=== PATIENT | female | born 1955 | race Caucasian/White ===

== ENCOUNTER 2017-08-15 14:43 | Inpatient (IN) | payer BC, MEDICARE ==
[2017-08-15 14:43] VITALS: BMI 26.2
[2017-08-15 17:01] LABS: SQUAMOUS EPITHIAL 1 /hpf (0-5); URINE AMORPHOUS SEDIMENT RARE /ul (<OCC); URINE BILIRUBIN NEGATIVE (NEGATIVE); URINE BLOOD 2+ (NEGATIVE); URINE CLARITY Hazy (Clear); URINE COLOR Yellow (YELLOW); URINE GLUCOSE (UA) NORMAL (Normal); URINE LEUKOCYTE ESTERASE NEG Leu/uL (Negative); URINE PROTEIN NEGATIVE (NEGATIVE)
[2017-08-15 17:09] LABS: BASO % 0.2 % (0.0-2.0); EOS % 0.1 % (0.0-4.0); HEMOGLOBIN 8.2 g/dL (11.0-16.0); LYMPH # 0.4 K/uL (1.0-4.3); MEAN CORPUSCULAR HEMOGLOBIN 29.8 pg (27.0-31.0); MONO # 0.1 K/uL (0.0-0.8); NEUT % 90.1 % (50.0-75.0); RBC 2.76 Mil/uL (3.80-5.20)
[2017-08-15 17:21] LABS: LYMPH % 7.8 % (20.0-40.0); MEAN CORPUSCULAR HGB CONC 32.9 g/dL (33.0-37.0); MEAN PLATELET VOLUME 11.7 fL (7.2-11.7); MONO % 1.8 % (0.0-10.0); NEUT # 5.1 K/uL (1.8-7.0); PLATELET COUNT 113 K/uL (130-400); RED CELL DISTRIBUTION WIDTH 16.9 % (11.5-14.5); WHITE BLOOD COUNT 5.7 K/uL (4.8-10.8)
[2017-08-15 17:22] LABS: MEAN CELL VOLUME 90.5 fL (81.0-99.0)
[2017-08-15 17:24] LABS: ALB/GLOB RATIO 1.2 (1.0-2.1); ALBUMIN 4.5 g/dL (3.5-5.0); ALT/SGPT 35 U/L (9-52); AST/SGOT 74 U/L (14-36); BLOOD UREA NITROGEN 35 mg/dL (7-17); GFR AFRICAN-AMERICAN > 60; GFR NON-AFRICAN AMERICAN 56
[2017-08-15 18:11] LABS: INR 2.9
--- NOTE | 2017-08-15 18:39 | C.PDOC ---
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 Patient states her hemoglobin level is usually around 9. Patient has been feeling generalized weakness and decrease in energy, so she was evaluated by her PMD and underwent bloodwork yesterday. Patient was called this morning and informed that her hemoglobin is around 7, and was advised to report to the ED for further evaluation. Patient denies fever, chills, nausea, vomiting. PMD: Dr. Brady Jameson Time Seen by Provider: 08/15/17 16:04 Chief Complaint (Nursing): Abnormal Labs History Per: Patient History/Exam Limitations: no limitations Current Symptoms Are (Timing): Still Present Additional History Per: Patient Past Medical History Reviewed: Historical Data, Nursing Documentation, Vital Signs Vital Signs: Last Vital Signs Temp 98.5 F 08/15/17 15:10 Pulse 97 H 08/15/17 15:10 Resp 20 08/15/17 15:10 BP 135/59 L 08/15/17 15:10 Pulse Ox 97 08/15/17 18:49 - Medical History PMH: Anemia (during ), Arthritis, Gastritis, HTN, Mitral Valve Prolapse ((1990)& arotic (2001) valve prolapse, mechanical heart valves placed) Denies: Chronic Kidney Disease Surgical History: No Surg Hx - [facility] D & C NEC (08/31/13) HYSTEROSCOPY (08/31/13) Family History: States: Unknown Family Hx - Social History Hx Alcohol Use: No Hx Substance Use: No - Immunization History Hx Tetanus Toxoid Vaccination: No Hx Influenza Vaccination: Yes Hx Pneumococcal Vaccination: Yes Review Of Systems Constitutional: Positive for: Other (low hemoglobin level ). Negative for: Fever, Chills Gastrointestinal: Negative for: Nausea, Vomiting Physical Exam - Physical Exam Appears: Non-toxic, No Acute Distress Skin: Warm, Dry, Pale Head: Atraumatic, Normacephalic Eye(s): bilateral: Normal Inspection Oral Mucosa: Moist Neck: Supple Chest: Symmetrical, No Deformity, No Tenderness Cardiovascular: Rhythm Regular, No Murmur Respiratory: Normal Breath Sounds, No Rales, No Rhonchi, No Wheezing Gastrointestinal/Abdominal: Soft, No Tenderness Extremity: Normal ROM, Capillary Refill (less than 2 seconds ) Neurological/Psych: Oriented x3, Normal Speech, Normal Cognition ED Course And Treatment - Laboratory Results Result Diagrams: 08/15/17 17:03 08/15/17 17:03 O2 Sat by Pulse Oximetry: 97 (on RA) Pulse Ox Interpretation: Normal Progress Note: Bloodwork and urinalysis ordered and reviewed. Patient has hemoglobin level of 8.2 L in the ED. Case discussed with Dr. Ornelas. Ordered 1 unit of extended blood transfusion. Patient will be observed on regular floor for symptomatic anemia. 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 - Scribe Statement The provider has reviewed the documentation as recorded by the Scribe (Matilde Fuller) All medical record entries made by the Scribe were at my direction and personally dictated by me. I have reviewed the chart and agree that the record accurately reflects my personal performance of the history, physical exam, medical decision making, and the department course for this patient. I have also personally directed, reviewed, and agree with the discharge instructions and disposition. Decision To Admit - Pt Status Changed To: Hospital Disposition Of: Observation - . Bed Request Type: Regular Admitting Physician: Luci Ornelas Patient Diagnosis: Symptomatic anemia
[2017-08-15 18:47] LABS: PROTHROMBIN TIME 31.9 SECONDS (9.7-12.2)
[2017-08-15 19:04] LABS: BANDS 5 % (0-2); HYPOCHROMIC SLIGHT; LYMPHOCYTE 3 % (20-40); MICROCYTOSIS SLIGHT; MONOCYTE 1 % (0-10); NEUTROPHIL 91 % (50-75); PLATELET ESTIMATE NORMAL (NORMAL); TOTAL CELLS COUNTED 100
[2017-08-15 19:05] LABS: LARGE PLATELETS PRESENT
--- NOTE | 2017-08-15 19:34 | CP.PCM.HP ---
History of Present Illness - History of Present Illness History of Present Illness: COMPREHENSIVE HISTORY & PHYSICAL EXAM HPI Patient is admitted from the emergency room with symptomatic anemia. 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 Currently patient is complaining of severe fatigue tiredness. Patient had a hemoglobin of 8.2 mg/dL. PAST HIST. Patient has history of aortic and mitral valve replacement. Hypertension PERSONAL HIST: Smoking. N Alcohol. N Allergy N Travel_- . FAMILY HIST : ROS : Constitutional: Negative for weight change, chills, night sweats Eyes: Negative for redness, swelling, itching, discharge, vision changes, blurry vision, double vision, glaucoma, cataracts, Ears: Negative for hearing loss, ringing, , tinnitus, vertigo Nose: Negative for rhinorrhea, stuffiness, sniffing, itching, postnasal drip, discoloration, nasal congestion and epistaxis. Throat: Negative for throat clearing, sore throat, hoarseness, difficulty swallowing and difficulty speaking. Respiratory: Negative for cough, , sputum production, chest tightness, wheezing, pleuritic chest pain ,daytime somnolence, chronic cough, hemoptysis, snoring at night, Cardiovascular: Negative for chest pain, palpitations, orthopnea, PND, Edema of legs, leg cramps, angina, claudication, , irregular heartbeat, Neurology: Negative for irritability, muscle weakness, numbness and tingling, seizures, tremors, migraines, slurred speech, syncope, memory loss, mood changes , recurrent headaches Gastrointestinal: Negative for difficulty swallowing, diarrhea, constipation, black stools, rectal bleeding, nausea, flatulence, reflux, poor appetite, changes in bowel habits, abdominal pain Genitourinary: Negative for frequent urination, hematuria, discharge, incontinence, urinary retention, frequent UTI, Psychiatric: Negative for depression, anxiety/panic, suicidal tendencies, Musculoskeletal: Negative for swollen joints, back pain, , neck pain, morning stiffness of joints, . Skin: Negative for rash, ulcers, itching, dry skin and pigmented lesions. P/E: Constitutional: Appears stated age and in no apparent distress. Head: Normocephalic. Ears: External ear canals patent without inflammation. Tympanic membranes intact with normal light reflex and landmark. Eyes: Pupils are central, bilaterally equal, symmetrical and reacts to light with normal movements and no icterus or pallor. Nose: External nares are patent. Mucosa is pink Mouth-Throat: Good general appearance and condition. No post-pharyngeal/oropharyngeal erythema and tonsillar hypertrophy. Good dental hygiene. Neck-Lymphatic: Neck is supple with normal ROM, no thyromegaly, lymph nodes or masses. JVD is normal with no carotid bruit. Lungs: Clear to percussion and auscultation with bilateral normal air entry. Cardiovascular: opening and closing metallic sounds at aortic and mitral area. There is a systolic ejection murmur in the aortic area grade 2 x 6. Mid diastolic murmur in mitral area. GI Exam: No hepatomegaly. Abdomen is soft and non-tender. No Organomegaly , masses or hernias are evident and bowel sounds are normal and active. Neurology: Higher function and all cranial nerves intact, with no gross motor or sensory deficit. Superficial and deep reflexes are normal with downwards planters. No cerebellar deficit with normal gait. Musculoskeletal: No tender spots with normal curvature of the spine with no swelling or restricted ROM of the small and large joints. Extremities: Homans sign absent. Intact pulses with no pitting edema, calf tenderness or skin color changes. Skin: No rash, eruptions or abnormal skin pigmentation LAB/RADIOLOGY: ASSESMENT : Symptomatic anemia, questionable hemolytic secondary to artificial valve in the aortic area. PLAN: Transfuse 1 unit of packed cells today. Present on Admission - Present on Admission Any Indicators Present on Admission: No Past Patient History - Past Medical History & Family History Past Medical History?: Yes - Past Social History Smoking Status: Never Smoked - CARDIAC Hx Hypertension: Yes Hx Mitral Valve Prolapse: Yes ((1990)& deonna (2001) valve prolapse, mechanical heart valves placed) - PULMONARY Hx Respiratory Disorders: No - NEUROLOGICAL Hx Neurological Disorder: No - HEENT Hx HEENT Problems: No - RENAL Hx Chronic Kidney Disease: No - ENDOCRINE/METABOLIC Hx Endocrine Disorders: No - HEMATOLOGICAL/ONCOLOGICAL Hx Anemia: Yes (during ) - INTEGUMENTARY Hx Dermatological Problems: No - MUSCULOSKELETAL/RHEUMATOLOGICAL Hx Arthritis: Yes - GASTROINTESTINAL Hx Gastritis: Yes - GENITOURINARY/GYNECOLOGICAL Hx Postmenopausal Bleeding: Yes - PSYCHIATRIC Hx Substance Use: No - SURGICAL HISTORY Hx Surgeries: Yes Hx Hysterectomy: Yes (1977) Hx Valve Replacement: Yes (arotic (2001) & mitral (1990) mechanical valves( Sulzer) [facility]) - ANESTHESIA Hx Anesthesia: Yes Hx Anesthesia Reactions: No Hx Malignant Hyperthermia: No Meds Allergies/Adverse Reactions: Allergies Allergy/AdvReac Type Severity Reaction Status Date / Time Penicillins Allergy RASH Verified 08/15/17 15:12 Results - Vital Signs Recent Vital Signs: Last Vital Signs Temp 98.5 F 08/15/17 15:10 Pulse 97 H 08/15/17 15:10 Resp 20 08/15/17 15:10 BP 135/59 L 08/15/17 15:10 Pulse Ox 97 08/15/17 19:07 - Labs Result Diagrams: 08/17/17 07:46 08/17/17 07:46 Labs: Laboratory Results - last 24 hr 08/15/17 08/15/17 08/15/17 16:51 17:03 17:03 WBC 5.7 RBC 2.76 L Hgb 8.2 L D Hct 24.9 L MCV 90.5 D MCH 29.8 MCHC 32.9 L RDW 16.9 H Plt Count 113 L MPV 11.7 Neut % (Auto) 90.1 H Lymph % (Auto) 7.8 L [place] % (Auto) 1.8 Eos % (Auto) 0.1 Baso % (Auto) 0.2 Neut # (Auto) 5.1 Lymph # (Auto) 0.4 L [place] # (Auto) 0.1 Eos # (Auto) 0.0 Baso # (Auto) 0.0 Neutrophils % (Manual) 91 H Band Neutrophils % 5 H Lymphocytes % (Manual) 3 L Monocytes % (Manual) 1 Platelet Estimate Normal Large Platelets Present Hypochromasia (manual) Slight Microcytosis (manual) Slight PT INR APTT Sodium 139 Potassium 5.2 Chloride 107 Carbon Dioxide 20 L Anion Gap 17 BUN 35 H Creatinine 1.0 Est GFR ( Amer) > 60 Est GFR (Non-Af Amer) 56 Random Glucose 122 H Calcium 9.0 Total Bilirubin 1.4 H AST 74 H ALT 35 Alkaline Phosphatase 82 Total Protein 8.2 Albumin 4.5 Globulin 3.7 Albumin/Globulin Ratio 1.2 Urine Color Yellow Urine Clarity Hazy Urine pH 5.0 Ur Specific [place] 1.017 Urine Protein Negative Urine Glucose (UA) Normal Urine Ketones Negative Urine Blood 2+ H Urine Nitrate Negative Urine Bilirubin Negative Urine Urobilinogen 2.0 H Ur Leukocyte Esterase Neg Urine WBC (Auto) 4 Urine RBC (Auto) 21 H Ur Squamous Epith Cells 1 Amorphous Sediment Rare H Hyaline Casts 3-5 H Digoxin Blood Type Antibody Screen 08/15/17 08/15/17 08/15/17 17:03 17:53 17:53 WBC RBC Hgb Hct MCV MCH MCHC RDW Plt Count MPV Neut % (Auto) Lymph % (Auto) [place] % (Auto) Eos % (Auto) Baso % (Auto) Neut # (Auto) Lymph # (Auto) [place] # (Auto) Eos # (Auto) Baso # (Auto) Neutrophils % (Manual) Band Neutrophils % Lymphocytes % (Manual) Monocytes % (Manual) Platelet Estimate Large Platelets Hypochromasia (manual) Microcytosis (manual) PT 31.9 H* INR 2.9 APTT 36 H Sodium Potassium Chloride Carbon Dioxide Anion Gap BUN Creatinine Est GFR ( Amer) Est GFR (Non-Af Amer) Random Glucose Calcium Total Bilirubin AST ALT Alkaline Phosphatase Total Protein Albumin Globulin Albumin/Globulin Ratio Urine Color Urine Clarity Urine pH Ur Specific [place] Urine Protein Urine Glucose (UA) Urine Ketones Urine Blood Urine Nitrate Urine Bilirubin Urine Urobilinogen Ur Leukocyte Esterase Urine WBC (Auto) Urine RBC (Auto) Ur Squamous Epith Cells Amorphous Sediment Hyaline Casts Digoxin 1.1 Blood Type O POSITIVE Antibody Screen Negative
[2017-08-15 22:56] VITALS: RESP 20
[2017-08-16 07:41] LABS: INR 3.3
[2017-08-16 07:50] LABS: BASO % 0.6 % (0.0-2.0); EOS # 0.1 K/uL (0.0-0.7); EOS % 1.1 % (0.0-4.0); HEMOGLOBIN 8.7 g/dL (11.0-16.0); LYMPH # 1.5 K/uL (1.0-4.3); LYMPH % 24.4 % (20.0-40.0); MEAN CELL VOLUME 88.9 fL (81.0-99.0); MEAN CORPUSCULAR HEMOGLOBIN 29.8 pg (27.0-31.0); MEAN CORPUSCULAR HGB CONC 33.6 g/dL (33.0-37.0); MEAN PLATELET VOLUME 11.8 fL (7.2-11.7); MONO # 0.4 K/uL (0.0-0.8); NEUT # 4.2 K/uL (1.8-7.0); NEUT % 67.9 % (50.0-75.0); NRBC % 0.1 % (0.0-2.0); RBC 2.9 Mil/uL (3.80-5.20); RED CELL DISTRIBUTION WIDTH 16.7 % (11.5-14.5); WHITE BLOOD COUNT 6.2 K/uL (4.8-10.8)
[2017-08-16 07:59] LABS: ALB/GLOB RATIO 1.2 (1.0-2.1); ALBUMIN 3.9 g/dL (3.5-5.0); ALT/SGPT 35 U/L (9-52); AST/SGOT 70 U/L (14-36); BLOOD UREA NITROGEN 36 mg/dL (7-17); GFR AFRICAN-AMERICAN > 60; GFR NON-AFRICAN AMERICAN > 60
[2017-08-16 08:01] LABS: PROTHROMBIN TIME 36.6 SECONDS (9.7-12.2)
[2017-08-16] MEDS ORDERED: METOPROLOL TARTRATE 50 MG PO SCH (10:00)
[2017-08-16] MEDS ORDERED: DIGOXIN 0.125 MG PO SCH (10:00)
[2017-08-16] MEDS: Pantoprazole 40 mg EC Tab PO SCH (11:03)
--- NOTE | 2017-08-16 14:27 | CP.PCM.PN ---
Subjective - Date & Time of Evaluation Date of Evaluation: 08/16/17 Time of Evaluation: 14:26 - Subjective Subjective: patient is afebrile with normal blood pressure Less fatigue and tiredness Hemoglobin is 8.7 after 1 unit of packed cell Reticulocyte count is 4.7% INR is 3.3, on 5 mg of Coumadin total bilirubin is slightly elevated at 1.7. opening and closing metallic sounds at aortic and mitral area. There is a systolic ejection murmur in the aortic area grade 2 x 6. Mid diastolic murmur in mitral area. We will get hematology evaluation for hemolytic anemia. Objective - Vital Signs/Intake and Output Vital Signs (last 24 hours): Temp Pulse Resp BP Pulse Ox 98.6 F 64 20 137/65 95 08/16/17 07:00 08/16/17 07:00 08/16/17 07:00 08/16/17 07:00 08/16/17 07:00 Intake and Output: 08/16/17 08/16/17 11:59 23:59 Intake Total 400 Balance 400 - Medications Medications: Current Medications Digoxin (Digoxin) 0.125 mg PO DAILY@1800 [facility] Ergocalciferol (Drisdol 50,000 Intl Units Cap) 1 cap PO QWK [facility] Home Med (Risedronate Sodium [Atelvia]) 35 mg PO QWK [facility] Metoprolol Tartrate (Lopressor) 50 mg PO BID [facility] Last Admin: 08/16/17 11:03 Dose: 50 mg Pantoprazole Sodium (Protonix Ec Tab) 40 mg PO DAILY [facility] Last Admin: 08/16/17 11:03 Dose: 40 mg - Labs Labs: 08/16/17 07:23 08/16/17 07:23 PT 36.6 SECONDS (9.7-12.2) H* 08/16/17 07:23 INR 3.3 08/16/17 07:23 APTT 34 SECONDS (21-34) 08/16/17 07:23
--- NOTE | 2017-08-16 16:37 | RAD ---
HISTORY: fever 101.4 COMPARISON: 03/26/2013 TECHNIQUE: Chest PA and lateral FINDINGS: LUNGS: No active pulmonary disease. PLEURA: No significant pleural effusion identified. No pneumothorax apparent. CARDIOVASCULAR: Status post mitral and aortic valve replacement. Sternotomy wires noted. OSSEOUS STRUCTURES: No significant abnormalities. VISUALIZED UPPER ABDOMEN: Normal. OTHER FINDINGS: None. IMPRESSION: No active disease.
[2017-08-16] MEDS: Digoxin 125 mcg (0.125 mg) Tab PO SCH (17:23)
[2017-08-16] MEDS: MethylPREDNISolone 40 mg Vial IVPB SCH (22:04)
[2017-08-16] MEDS: Albuterol-Ipratrop 3 mg / 0.5 (3 ml) UD INH SCH (22:44)
--- NOTE | 2017-08-16 23:23 | CP.PCM.CON ---
History of Present Illness - History of Present Illness History of Present Illness: INFECTIOUS DISEASE CONSULT; HPI; 61-year-old female with history of anemia, arthritis, hypertension, history of mitral valve replacement in October 1990, aortic valve replacement in September 2001, gastritis was admitted via the emergency room with symptomatic anemia. Patient presently complaining of severe fatigue and tiredness and on admission had a hemoglobin of 8.2 and was transfused 1 unit off packed red blood cells. Patient today spiked a fever of 101.4 and complains of chills. Patient states on Saturday she went to her private M.D. as she was not feeling well and he diagnosed her with asthma as she was wheezing and put her on prednisone, a pump, Singulair and by mouth Zithromax. She also did blood works and was found to have a hemoglobin of 7.0 and was advised to go to the emergency room for blood transfusion and further investigation. Infectious disease consultation requested by PMD as patient spiked a fever of 101.4 with history of mechanical heart valves both aortic and mitral valve. Patient denies chest pain,BUT COMPLAINS OFF COUGH WHICH IS DRY. PATIENT DENIES ANY PREVIOUS HISTORY OFF PULMONARY EMBOLISM OR DVT. PATIENT DENIES ANY RECENT TRAVEL OR ANY RECENT SICK CONTACTS. PMH: Anemia (during ), Arthritis, Gastritis, HTN, Mitral Valve Prolapse ((1990)& arotic (2001) valve prolapse, mechanical heart valves placed) Denies: Chronic Kidney Disease Surgical History: No Surg Hx - [facility] Procedures D & C NEC (08/31/13) HYSTEROSCOPY (08/31/13) Family History: States: Unknown Family Hx - Social History Hx Alcohol Use: No Hx Substance Use: No - Immunization History Hx Tetanus Toxoid Vaccination: No Hx Influenza Vaccination: Yes Hx Pneumococcal Vaccination: Yes PMH: Anemia (during ), Arthritis, Gastritis, HTN, Mitral Valve Prolapse ((1990)& arotic (2001) valve prolapse, mechanical heart valves placed) Denies: Chronic Kidney Disease Surgical History: No Surg Hx - [facility] Procedures D & C NEC (08/31/13) HYSTEROSCOPY (08/31/13) Family History: States: Unknown Family Hx - Social History Hx Alcohol Use: No Hx Substance Use: No - Immunization History Hx Tetanus Toxoid Vaccination: No Hx Influenza Vaccination: Yes Hx Pneumococcal Vaccination: Yes ALLERGY; [place] SHE GETS A RASH. Review of Systems - Constitutional Constitutional: Chills, Fatigue, Fever. absent: Night Sweats - EENT Eyes: absent: Change in Vision Ears: Dizziness Nose/Mouth/Throat: absent: Sinus Pain, Mouth Lesions, Neck Pain - Cardiovascular Cardiovascular: Lightheadedness. absent: Chest Pain, Leg Edema, Palpitations - Respiratory Respiratory: Cough, Wheezing - Gastrointestinal Gastrointestinal: absent: Abdominal Pain, Loose Stools, Nausea, Vomiting - Musculoskeletal Musculoskeletal: Arthralgias - Neurological Neurological: absent: Headaches - Hematologic/Lymphatic Hematologic: As Per HPI. absent: Easy Bleeding, Easy Bruising, Lymphadenopathy Past Patient History - Past Medical History & Family History Past Medical History?: Yes - Past Social History Smoking Status: Never Smoked - CARDIAC Hx Hypertension: Yes Hx Mitral Valve Prolapse: Yes ((1990)& deonna (2001) valve prolapse, mechanical heart valves placed) - PULMONARY Hx Respiratory Disorders: No - NEUROLOGICAL Hx Neurological Disorder: No - HEENT Hx HEENT Problems: No - RENAL Hx Chronic Kidney Disease: No - ENDOCRINE/METABOLIC Hx Endocrine Disorders: No - HEMATOLOGICAL/ONCOLOGICAL Hx Anemia: Yes (during ) - INTEGUMENTARY Hx Dermatological Problems: No - MUSCULOSKELETAL/RHEUMATOLOGICAL Hx Arthritis: Yes - GASTROINTESTINAL Hx Gastritis: Yes - GENITOURINARY/GYNECOLOGICAL Hx Postmenopausal Bleeding: Yes - PSYCHIATRIC Hx Substance Use: No - SURGICAL HISTORY Hx Surgeries: Yes Hx Hysterectomy: Yes (1977) Hx Valve Replacement: Yes (arotic (2001) & mitral (1990) mechanical valves( Sulzer) [facility]) - ANESTHESIA Hx Anesthesia: Yes Hx Anesthesia Reactions: No Hx Malignant Hyperthermia: No Meds Allergies/Adverse Reactions: Allergies Allergy/AdvReac Type Severity Reaction Status Date / Time Penicillins Allergy RASH Verified 08/15/17 15:12 - Medications Medications: Current Medications Acetaminophen (Tylenol 325mg Tab) 650 mg PO Q6 PRN PRN Reason: Headache Last Admin: 08/16/17 17:23 Dose: 650 mg Albuterol/Ipratropium (Duoneb 3 Mg/0.5 Mg (3 Ml) Ud) 3 ml INH RQ6 [facility] Last Admin: 08/16/17 22:44 Dose: 3 ml Digoxin (Digoxin) 0.125 mg PO DAILY@1800 [facility] Last Admin: 08/16/17 17:23 Dose: 0.125 mg Ergocalciferol (Drisdol 50,000 Intl Units Cap) 1 cap PO QWK [facility] Home Med (Risedronate Sodium [Atelvia]) 35 mg PO QWK [facility] Doxycycline Hyclate 100 mg/ (Sodium Chloride) 100 mls @ 100 mls/hr IVPB Q12H [facility] PRN Reason: Protocol Last Admin: 08/16/17 22:28 Dose: 100 mls/hr Methylprednisolone (Solu-Medrol) 40 mg IVPB Q12 [facility] Last Admin: 08/16/17 22:04 Dose: 40 mg Metoprolol Tartrate (Lopressor) 50 mg PO BID [facility] Last Admin: 08/16/17 17:24 Dose: 50 mg Montelukast Sodium (Singulair) 10 mg PO HS [facility] Last Admin: 08/16/17 22:04 Dose: 10 mg Pantoprazole Sodium (Protonix Ec Tab) 40 mg PO DAILY [facility] Last Admin: 08/16/17 11:03 Dose: 40 mg Physical Exam - Constitutional Appears: No Acute Distress - Head Exam Head Exam: NORMAL INSPECTION - Eye Exam Eye Exam: EOMI, PERRL - ENT Exam ENT Exam: Normal Oropharynx - Neck Exam Neck exam: Positive for: Normal Inspection. Negative for: Lymphadenopathy - Respiratory Exam Respiratory Exam: Prolonged Expiratory Phase, Wheezes - Cardiovascular Exam Cardiovascular Exam: REGULAR RHYTHM, +S1, +S2 - GI/Abdominal Exam GI & Abdominal Exam: Normal Bowel Sounds, Soft. absent: Organomegaly, Tenderness - Extremities Exam Extremities exam: Positive for: pedal pulses present. Negative for: calf tenderness, pedal edema - Neurological Exam Neurological exam: Alert, CN II-XII Intact, Oriented x3 - Psychiatric Exam Psychiatric exam: Normal Mood - Skin Skin Exam: Pallor, Warm Results - Vital Signs Recent Vital Signs: Last Vital Signs Temp 98.0 F 08/16/17 16:39 Pulse 7 L 08/16/17 22:44 Resp 20 08/16/17 16:39 BP 130/72 08/16/17 16:39 Pulse Ox 99 08/16/17 16:39 - Labs Result Diagrams: 08/16/17 07:23 08/16/17 07:23 Labs: Laboratory Results - last 24 hr 08/15/17 08/16/17 08/16/17 17:03 07:23 07:23 WBC 6.2 RBC 2.90 L Hgb 8.7 L Hct 25.8 L MCV 88.9 MCH 29.8 MCHC 33.6 RDW 16.7 H Plt Count 104 L MPV 11.8 H Neut % (Auto) 67.9 Lymph % (Auto) 24.4 [place] % (Auto) 6.0 Eos % (Auto) 1.1 Baso % (Auto) 0.6 Neut # (Auto) 4.2 Lymph # (Auto) 1.5 [place] # (Auto) 0.4 Eos # (Auto) 0.1 Baso # (Auto) 0.0 Retic Count 4.7 H PT 36.6 H* INR 3.3 APTT 34 Sodium Potassium Chloride Carbon Dioxide Anion Gap BUN Creatinine Est GFR ( Amer) Est GFR (Non-Af Amer) Random Glucose Calcium Total Bilirubin AST ALT Alkaline Phosphatase Total Protein Albumin Globulin Albumin/Globulin Ratio Blood Type O POSITIVE Antibody Screen Negative 08/16/17 07:23 WBC RBC Hgb Hct MCV MCH MCHC RDW Plt Count MPV Neut % (Auto) Lymph % (Auto) [place] % (Auto) Eos % (Auto) Baso % (Auto) Neut # (Auto) Lymph # (Auto) [place] # (Auto) Eos # (Auto) Baso # (Auto) Retic Count PT INR APTT Sodium 141 Potassium 4.5 Chloride 110 H Carbon Dioxide 21 L Anion Gap 14 BUN 36 H Creatinine 0.9 Est GFR ( Amer) > 60 Est GFR (Non-Af Amer) > 60 Random Glucose 85 Calcium 9.0 Total Bilirubin 1.6 H AST 70 H ALT 35 Alkaline Phosphatase 64 Total Protein 7.3 Albumin 3.9 Globulin 3.4 Albumin/Globulin Ratio 1.2 Blood Type Antibody Screen - Imaging and Cardiology Chest x-ray Status: Report reviewed by me (no active infiltrate.) Assessment & Plan (1) Fever and chills Assessment and Plan: pancultures. ESR. CRP. MRSA SCREEN INFLUENZA A/B RAPID ANTIGEN TEST INFLUENZA a AND b ANTIBODY. START iv VIBRAMYCIN 100 MG EVERY 12 HOURLY 08/16/17. 2-d ECHO R/O VEGS. F/U cbc WITH DIFFERENTIAL, LFTS, HEPATITIS SCREEN A,B,C . FOLLOW-UP CULTURES TO ADJUST ANTIBIOTICS. Status: Acute (2) Symptomatic anemia Assessment and Plan: PATIENT RECEIVED 1 UNIT OF PRBC. HEMATOLOGY CONSULT IN PROGRESS. Status: Acute (3) Mechanical heart valve present Assessment and Plan: WE WILL GET 2-d ECHO BASELINE FOR EVALUATION OF HEART VALVES. Status: Acute (4) Asthma Assessment and Plan: patient started on Solu-Medrol as noted. Continue pulmonary toilet and DuoNeb treatments as ordered by PMD. Singulair 10 mg by mouth once a day daily. Status: Acute (5) Hypertension Status: Acute
[2017-08-17] MEDS: Albuterol-Ipratrop 3 mg / 0.5 (3 ml) UD INH SCH ×4 (01:15→19:54)
[2017-08-17 07:59] LABS: BASO % 0.2 % (0.0-2.0); INR 3.1; LYMPH # 0.4 K/uL (1.0-4.3); LYMPH % 9.1 % (20.0-40.0); MEAN CELL VOLUME 90.2 fL (81.0-99.0); MEAN CORPUSCULAR HEMOGLOBIN 30.5 pg (27.0-31.0); MEAN CORPUSCULAR HGB CONC 33.8 g/dL (33.0-37.0); MEAN PLATELET VOLUME 11.8 fL (7.2-11.7); MONO # 0.1 K/uL (0.0-0.8); MONO % 2.3 % (0.0-10.0); NEUT # 4.3 K/uL (1.8-7.0); NEUT % 88.4 % (50.0-75.0); PLATELET COUNT 105 K/uL (130-400); RBC 2.95 Mil/uL (3.80-5.20); RED CELL DISTRIBUTION WIDTH 16.8 % (11.5-14.5); WHITE BLOOD COUNT 4.8 K/uL (4.8-10.8)
[2017-08-17 08:29] LABS: PROTHROMBIN TIME 34.2 SECONDS (9.7-12.2)
[2017-08-17 09:07] LABS: HEPATITIS B SURFACE AG Negative (NEGATIVE)
[2017-08-17 09:13] LABS: HEPATITIS A IGM NEGATIVE (NEGATIVE); HEPATITIS B CORE AB NEGATIVE (NEGATIVE)
[2017-08-17 09:24] LABS: HEPATITIS C ANTIBODY NEGATIVE (NEGATIVE)
[2017-08-17 09:25] LABS: HEPATITIS C ANTIBODY NEGATIVE (NEGATIVE)
[2017-08-17 09:28] LABS: ALB/GLOB RATIO 1.1 (1.0-2.1); ALBUMIN 3.9 g/dL (3.5-5.0); ALT/SGPT 31 U/L (9-52); AST/SGOT 65 U/L (14-36); BILIRUBIN,DIRECT 0.5 mg/dL (0.0-0.4); BLOOD UREA NITROGEN 27 mg/dL (7-17); CALCIUM 8.8 mg/dl (8.6-10.4); GFR AFRICAN-AMERICAN > 60; GFR NON-AFRICAN AMERICAN > 60
[2017-08-17 09:35] LABS: LYMPHOCYTE 8 % (20-40); MONOCYTE 2 % (0-10); NEUTROPHIL 90 % (50-75); PLATELET ESTIMATE SLIGHTLY DECREASED (NORMAL); TOTAL CELLS COUNTED 100
[2017-08-17 09:36] LABS: HYPOCHROMIC SLIGHT; POLYCHROMIC SLIGHT; TOXIC GRANULATION PRESENT
[2017-08-17 09:37] LABS: ANISOCYTOSIS MODERATE; MICROCYTOSIS SLIGHT
[2017-08-17] MEDS: MethylPREDNISolone 40 mg Vial IVPB SCH ×2 (10:37→21:32)
[2017-08-17] MEDS: Pantoprazole 40 mg EC Tab PO SCH (10:38)
--- NOTE | 2017-08-17 13:59 | CP.PCM.CON ---
History of Present Illness - History of Present Illness History of Present Illness: 61 year old female with a history of asthma, mechanical aortic/mitral valve on coumadin, chronic anemia, admitted with symptomatic anemia. The patient reports she has been experiencing increasing fatigue and had blood work done by her outpatient physician. She was found to have a low hgb and told to come to the hospital for a transfusion. She denies abnormal bleeding and bruising. She is s/p 1U PRBC and notes to feeling better. past medical history: Asthma, mechanical aortic/mitral valve Past surgical history: mechanical aortic/mitral valve Family history: Denies hematologic and oncologic problems Social history: Denies tobacco, alcohol, and illicit drug use Allergies: Penicillins Review of systems: All remaining review of systems including HEENT, cardiovascular, respiratory, gastrointestinal, geniturinary, musculoskeletal, dermatologic, neurologic ,and psychiatric are negative unless mentioned in the HPI. Past Patient History - Past Medical History & Family History Past Medical History?: Yes - Past Social History Smoking Status: Never Smoked - CARDIAC Hx Hypertension: Yes Hx Mitral Valve Prolapse: Yes ((1990)& deonna (2001) valve prolapse, mechanical heart valves placed) - PULMONARY Hx Respiratory Disorders: No - NEUROLOGICAL Hx Neurological Disorder: No - HEENT Hx HEENT Problems: No - RENAL Hx Chronic Kidney Disease: No - ENDOCRINE/METABOLIC Hx Endocrine Disorders: No - HEMATOLOGICAL/ONCOLOGICAL Hx Anemia: Yes (during ) - INTEGUMENTARY Hx Dermatological Problems: No - MUSCULOSKELETAL/RHEUMATOLOGICAL Hx Arthritis: Yes - GASTROINTESTINAL Hx Gastritis: Yes - GENITOURINARY/GYNECOLOGICAL Hx Postmenopausal Bleeding: Yes - PSYCHIATRIC Hx Substance Use: No - SURGICAL HISTORY Hx Surgeries: Yes Hx Hysterectomy: Yes (1977) Hx Valve Replacement: Yes (arotic (2001) & mitral (1990) mechanical valves( [facility]) [facility]) - ANESTHESIA Hx Anesthesia: Yes Hx Anesthesia Reactions: No Hx Malignant Hyperthermia: No Meds Allergies/Adverse Reactions: Allergies Allergy/AdvReac Type Severity Reaction Status Date / Time Penicillins Allergy RASH Verified 08/15/17 15:12 - Medications Medications: Current Medications Acetaminophen (Tylenol 325mg Tab) 650 mg PO Q6 PRN PRN Reason: Headache Last Admin: 08/16/17 17:23 Dose: 650 mg Albuterol/Ipratropium (Duoneb 3 Mg/0.5 Mg (3 Ml) Ud) 3 ml INH RQ6 [facility] Last Admin: 08/17/17 13:00 Dose: 3 ml Digoxin (Digoxin) 0.125 mg PO DAILY@1800 [facility] Last Admin: 08/16/17 17:23 Dose: 0.125 mg Ergocalciferol (Drisdol 50,000 Intl Units Cap) 1 cap PO QWK [facility] Doxycycline Hyclate 100 mg/ (Sodium Chloride) 100 mls @ 100 mls/hr IVPB Q12H [facility] PRN Reason: Protocol Last Admin: 08/17/17 10:43 Dose: 100 mls/hr Methylprednisolone (Solu-Medrol) 40 mg IVPB Q12 [facility] Last Admin: 08/17/17 10:37 Dose: 40 mg Metoprolol Tartrate (Lopressor) 50 mg PO BID [facility] Last Admin: 08/17/17 10:38 Dose: 50 mg Montelukast Sodium (Singulair) 10 mg PO HS [facility] Last Admin: 08/16/17 22:04 Dose: 10 mg Pantoprazole Sodium (Protonix Ec Tab) 40 mg PO DAILY [facility] Last Admin: 08/17/17 10:38 Dose: 40 mg Physical Exam - Head Exam Head Exam: ATRAUMATIC - Eye Exam Eye Exam: Normal appearance - ENT Exam ENT Exam: Mucous Membranes Dry - Respiratory Exam Respiratory Exam: NORMAL BREATHING PATTERN - Cardiovascular Exam Cardiovascular Exam: +S1, +S2 - GI/Abdominal Exam GI & Abdominal Exam: Normal Bowel Sounds Results - Vital Signs Recent Vital Signs: Last Vital Signs Temp 98.7 F 08/17/17 08:17 Pulse 71 08/17/17 08:17 Resp 20 08/17/17 08:17 BP 114/58 L 08/17/17 08:17 Pulse Ox 96 08/17/17 08:17 - Labs Result Diagrams: 08/17/17 07:46 08/17/17 07:46 Labs: Laboratory Results - last 24 hr 08/17/17 08/17/17 08/17/17 07:46 07:46 07:46 WBC 4.8 RBC 2.95 L Hgb 9.0 L Hct 26.6 L MCV 90.2 MCH 30.5 MCHC 33.8 RDW 16.8 H Plt Count 105 L MPV 11.8 H Neut % (Auto) 88.4 H Lymph % (Auto) 9.1 L Cedar % (Auto) 2.3 Eos % (Auto) 0.0 Baso % (Auto) 0.2 Neut # (Auto) 4.3 Lymph # (Auto) 0.4 L Cedar # (Auto) 0.1 Eos # (Auto) 0.0 Baso # (Auto) 0.0 Neutrophils % (Manual) 90 H Lymphocytes % (Manual) 8 L Monocytes % (Manual) 2 Toxic Granulation Present Platelet Estimate Slightly decreased L Polychromasia Slight Hypochromasia (manual) Slight Anisocytosis (manual) Moderate Microcytosis (manual) Slight ESR 35 H PT 34.2 H* INR 3.1 Sodium 140 Potassium 5.2 Chloride 108 H Carbon Dioxide 21 L Anion Gap 16 BUN 27 H Creatinine 0.8 Est GFR ( Amer) > 60 Est GFR (Non-Af Amer) > 60 Random Glucose 153 H Calcium 8.8 Total Bilirubin 1.4 H Direct Bilirubin 0.5 H AST 65 H ALT 31 Alkaline Phosphatase 66 C-Reactive Protein Total Protein 7.5 Albumin 3.9 Globulin 3.6 Albumin/Globulin Ratio 1.1 Hepatitis A IgM Ab Hep Bs Antigen Hep B Core IgM Ab Hepatitis C Antibody Influenza Typ A,B (EIA) 08/17/17 08/17/17 08/17/17 07:46 07:46 07:46 WBC RBC Hgb Hct MCV MCH MCHC RDW Plt Count MPV Neut % (Auto) Lymph % (Auto) Cedar % (Auto) Eos % (Auto) Baso % (Auto) Neut # (Auto) Lymph # (Auto) Cedar # (Auto) Eos # (Auto) Baso # (Auto) Neutrophils % (Manual) Lymphocytes % (Manual) Monocytes % (Manual) Toxic Granulation Platelet Estimate Polychromasia Hypochromasia (manual) Anisocytosis (manual) Microcytosis (manual) ESR PT INR Sodium Potassium Chloride Carbon Dioxide Anion Gap BUN Creatinine Est GFR ( Amer) Est GFR (Non-Af Amer) Random Glucose Calcium Total Bilirubin Direct Bilirubin AST ALT Alkaline Phosphatase C-Reactive Protein 52.40 H Total Protein Albumin Globulin Albumin/Globulin Ratio Hepatitis A IgM Ab Negative Hep Bs Antigen Negative Hep B Core IgM Ab Negative Hepatitis C Antibody Negative Negative Influenza Typ A,B (EIA) Negative for flu a/b Assessment & Plan (1) Hemolytic anemia Assessment and Plan: 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 Status: Acute
--- NOTE | 2017-08-17 14:23 | CP.PCM.PN ---
Subjective - Date & Time of Evaluation Date of Evaluation: 08/17/17 Time of Evaluation: 14:23 - Subjective Subjective: CHIEF COMPLAINTS TODAY : Patient spiked temperature of 101 associated with wheezing yesterday afternoon. Currently patient is afebrile Repeat hemoglobin is 9.0 g/dL, INR is 3.1 No visible bleeding ROS. HEENT : N. Resp : No cough, wheezing ,pleuritic CP ,or hemoptysis Cardio : No anginal CP, PND, orthopnea, palpitation GI : No abd.pain, n/v ,diarrhea or GI bleeding . MANAGER MATERIAL : No headache, vertigo, focal deficit. Musculoskel : No joint swelling , Derm : No rash Psych : Normal affect. Ext : No swelling ,calf pain PE. Pt. is alert awake in no distress. V.S As noted in the chart Head ,ear nose,throat and eyes : Normal. Neck : Supple with normal carotids. Lungs: Clear air entry. Heart : opening and closing metallic sounds at aortic and mitral area. There is a systolic ejection murmur in the aortic area grade 2 x 6. Mid diastolic murmur in mitral area. Abd : Soft non tender with normal bowel sounds. Neuro : Moves all ext. with no localized deficit. Ext : No edema with intact pulses.Non tender calves Derm : No rashes or decubitus ulcer. LABS/RADIOLOGY: ASSESSMENT/PLAN : Discussed with ID and hematology for further treatment Patient on small dose of steroids and nebulizers around the clock Continue Coumadin 5 mg. Objective - Vital Signs/Intake and Output Vital Signs (last 24 hours): Temp Pulse Resp BP Pulse Ox 98.7 F 71 20 114/58 L 96 08/17/17 08:17 08/17/17 08:17 08/17/17 08:17 08/17/17 08:17 08/17/17 08:17 Intake and Output: 08/17/17 08/17/17 11:59 23:59 Intake Total 120 Balance 120 - Medications Medications: Current Medications Acetaminophen (Tylenol 325mg Tab) 650 mg PO Q6 PRN PRN Reason: Headache Last Admin: 08/16/17 17:23 Dose: 650 mg Albuterol/Ipratropium (Duoneb 3 Mg/0.5 Mg (3 Ml) Ud) 3 ml INH RQ6 [facility] Last Admin: 08/17/17 13:00 Dose: 3 ml Digoxin (Digoxin) 0.125 mg PO DAILY@1800 [facility] Last Admin: 08/16/17 17:23 Dose: 0.125 mg Ergocalciferol (Drisdol 50,000 Intl Units Cap) 1 cap PO QWK [facility] Doxycycline Hyclate 100 mg/ (Sodium Chloride) 100 mls @ 100 mls/hr IVPB Q12H [facility] PRN Reason: Protocol Last Admin: 08/17/17 10:43 Dose: 100 mls/hr Methylprednisolone (Solu-Medrol) 40 mg IVPB Q12 [facility] Last Admin: 08/17/17 10:37 Dose: 40 mg Metoprolol Tartrate (Lopressor) 50 mg PO BID [facility] Last Admin: 08/17/17 10:38 Dose: 50 mg Montelukast Sodium (Singulair) 10 mg PO HS [facility] Last Admin: 08/16/17 22:04 Dose: 10 mg Pantoprazole Sodium (Protonix Ec Tab) 40 mg PO DAILY [facility] Last Admin: 08/17/17 10:38 Dose: 40 mg - Labs Labs: 08/17/17 07:46 08/17/17 07:46 PT 34.2 SECONDS (9.7-12.2) H* 08/17/17 07:46 INR 3.1 08/17/17 07:46 APTT 34 SECONDS (21-34) 08/16/17 07:23
[2017-08-17] MEDS ORDERED: Home Med 1 UNIT (Pantoprazole Sodium [Protonix] 40 MG) PO SCH (18:00)
[2017-08-17 18:16] LABS: FERRITIN 89.6 ng/mL
[2017-08-17] MEDS: Digoxin 125 mcg (0.125 mg) Tab PO SCH (18:28)
[2017-08-17 18:46] LABS: FOLATE 17.9 ng/mL
--- NOTE | 2017-08-17 20:49 | CP.PCM.PN ---
Subjective - Date & Time of Evaluation Date of Evaluation: 08/17/17 Time of Evaluation: 20:49 - Subjective Subjective: CHIEF COMPLAINTS TODAY : tmax 101.4 yesterday. Currently patient is afebrile Repeat hemoglobin is 9.0 g/dL, INR is 3.1 No visible bleeding SEEN BY HEMATOLOGY ROS. HEENT : N. Resp : +VE OCC COUGH, +VE wheezing , NO pleuritic CP ,or hemoptysis Cardio : No anginal CP, PND, orthopnea, palpitation GI : No abd.pain, n/v ,diarrhea or GI bleeding . PROGRAMS ASSISTANT : No headache, vertigo, focal deficit. Musculoskel : No joint swelling , Derm : No rash Psych : Normal affect. Ext : No swelling ,calf pain PE. Pt. is alert awake in no distress. V.S As noted in the chart Head ,ear nose,throat and eyes : Normal. Neck : Supple with normal carotids. Lungs: PROLONGED EXPIRATORY PHASE Heart : opening and closing metallic sounds at aortic and mitral area. There is a systolic ejection murmur in the aortic area grade 2 x 6. Mid diastolic murmur in mitral area. Abd : Soft non tender with normal bowel sounds. Neuro : Moves all ext. with no localized deficit. Ext : No edema with intact pulses.Non tender calves Derm : No rashes or decubitus ulcer. LABS/RADIOLOGY: REVIEWED Objective - Vital Signs/Intake and Output Vital Signs (last 24 hours): Temp Pulse Resp BP Pulse Ox 97.9 F 63 20 121/59 L 98 08/17/17 16:00 08/17/17 16:00 08/17/17 16:00 08/17/17 16:00 08/17/17 16:00 Intake and Output: 08/17/17 08/18/17 18:59 06:59 Intake Total 600 Balance 600 - Medications Medications: Current Medications Acetaminophen (Tylenol 325mg Tab) 650 mg PO Q6 PRN PRN Reason: Headache Last Admin: 08/16/17 17:23 Dose: 650 mg Albuterol/Ipratropium (Duoneb 3 Mg/0.5 Mg (3 Ml) Ud) 3 ml INH RQ6 [facility] Last Admin: 08/17/17 19:54 Dose: 3 ml Digoxin (Digoxin) 0.125 mg PO DAILY@1800 [facility] Last Admin: 08/17/17 18:28 Dose: 0.125 mg Ergocalciferol (Drisdol 50,000 Intl Units Cap) 1 cap PO QWK [facility] Doxycycline Hyclate 100 mg/ (Sodium Chloride) 100 mls @ 100 mls/hr IVPB Q12H [facility] PRN Reason: Protocol Last Admin: 08/17/17 10:43 Dose: 100 mls/hr Methylprednisolone (Solu-Medrol) 40 mg IVPB Q12 [facility] Last Admin: 08/17/17 10:37 Dose: 40 mg Metoprolol Tartrate (Lopressor) 50 mg PO BID [facility] Last Admin: 08/17/17 18:29 Dose: Not Given Montelukast Sodium (Singulair) 10 mg PO HS [facility] Last Admin: 08/16/17 22:04 Dose: 10 mg Pantoprazole Sodium (Protonix Ec Tab) 40 mg PO DAILY [facility] Last Admin: 08/17/17 10:38 Dose: 40 mg - Labs Labs: 08/17/17 07:46 08/17/17 07:46 PT 34.2 SECONDS (9.7-12.2) H* 08/17/17 07:46 INR 3.1 08/17/17 07:46 APTT 34 SECONDS (21-34) 08/16/17 07:23 Assessment and Plan (1) Fever and chills Assessment & Plan: septic workup in progress. Blood cultures negative for 24 hours.. Continue IV Vibramycin 100 mg every 12 hourly for now for possibility lower respiratory tract infection.08/16/17. Atypical titers pending. Follow-up LFTS . Status: Acute (2) Symptomatic anemia Assessment & Plan: s/p 1 unit PRBC TRANSFUSION. WATCH H/H. HEMATOLOGY ONBOARD. Status: Acute (3) Mechanical heart valve present Assessment & Plan: PATIENT ON COUMADIN 5 MG od DAILY Status: Acute (4) Asthma Assessment & Plan: CONTINUE NEBULIZER THERAPY pULMONARY TOILET. Status: Acute (5) Hypertension Status: Acute
[2017-08-18] MEDS: Albuterol-Ipratrop 3 mg / 0.5 (3 ml) UD INH SCH ×4 (04:55→22:34)
[2017-08-18 06:54] LABS: BASO % 0.1 % (0.0-2.0); HEMOGLOBIN 8.4 g/dL (11.0-16.0); LYMPH # 0.5 K/uL (1.0-4.3); MEAN CELL VOLUME 89.6 fL (81.0-99.0); MEAN CORPUSCULAR HEMOGLOBIN 30.3 pg (27.0-31.0); MEAN CORPUSCULAR HGB CONC 33.8 g/dL (33.0-37.0); MEAN PLATELET VOLUME 11.6 fL (7.2-11.7); MONO # 0.2 K/uL (0.0-0.8); MONO % 4.3 % (0.0-10.0); NEUT % 87.6 % (50.0-75.0); PLATELET COUNT 104 K/uL (130-400); RBC 2.76 Mil/uL (3.80-5.20); RED CELL DISTRIBUTION WIDTH 16.7 % (11.5-14.5); WHITE BLOOD COUNT 5.7 K/uL (4.8-10.8)
[2017-08-18 07:05] LABS: PROTHROMBIN TIME 32.4 SECONDS (9.7-12.2)
[2017-08-18 07:16] LABS: ALB/GLOB RATIO 1.2 (1.0-2.1); ALBUMIN 3.5 g/dL (3.5-5.0); ALT/SGPT 31 U/L (9-52); AST/SGOT 48 U/L (14-36); BLOOD UREA NITROGEN 35 mg/dL (7-17); CALCIUM 8.9 mg/dl (8.6-10.4); GFR AFRICAN-AMERICAN > 60; GFR NON-AFRICAN AMERICAN > 60
[2017-08-18 09:01] LABS: ANISOCYTOSIS SLIGHT; HYPOCHROMIC SLIGHT; LYMPHOCYTE 9 % (20-40); MONOCYTE 4 % (0-10); NEUTROPHIL 87 % (50-75); PLATELET ESTIMATE SLIGHTLY DECREASED (NORMAL); POLYCHROMIC SLIGHT; TOTAL CELLS COUNTED 100
[2017-08-18 09:02] LABS: LARGE PLATELETS PRESENT; TOXIC GRANULATION PRESENT
[2017-08-18] MEDS: MethylPREDNISolone 40 mg Vial IVPB SCH ×2 (09:40→21:20)
[2017-08-18] MEDS: Pantoprazole 40 mg EC Tab PO SCH (09:40)
--- NOTE | 2017-08-18 15:25 | CP.PCM.PN ---
Subjective - Date & Time of Evaluation Date of Evaluation: 08/18/17 Time of Evaluation: 15:23 - Subjective Subjective: CHIEF COMPLAINTS TODAY : Patient spiked temperature of 101 associated with wheezing yesterday afternoon. Currently patient is afebrile Repeat hemoglobin is 9.0 g/dL, INR is 3.0 No visible bleeding ROS. HEENT : N. Resp : No cough, wheezing ,pleuritic CP ,or hemoptysis Cardio : No anginal CP, PND, orthopnea, palpitation GI : No abd.pain, n/v ,diarrhea or GI bleeding . OFFSET PRESS ASSISTANT : No headache, vertigo, focal deficit. Musculoskel : No joint swelling , Derm : No rash Psych : Normal affect. Ext : No swelling ,calf pain PE. Pt. is alert awake in no distress. V.S As noted in the chart Head ,ear nose,throat and eyes : Normal. Neck : Supple with normal carotids. Lungs: Clear air entry. Heart : opening and closing metallic sounds at aortic and mitral area. There is a systolic ejection murmur in the aortic area grade 2 x 6. Mid diastolic murmur in mitral area. Abd : Soft non tender with normal bowel sounds. Neuro : Moves all ext. with no localized deficit. Ext : No edema with intact pulses.Non tender calves Derm : No rashes or decubitus ulcer. LABS/RADIOLOGY: ASSESSMENT/PLAN : Today's potassium is 5.3 will repeat the potassium and follow it up. INR is 3.0 continue 5 mg of Coumadin Hematology evaluation noted, anemia probably secondary to valve hemolysis. Objective - Vital Signs/Intake and Output Vital Signs (last 24 hours): Temp Pulse Resp BP Pulse Ox 97.7 F 63 20 131/58 L 96 08/18/17 00:00 08/18/17 00:00 08/18/17 00:00 08/18/17 00:00 08/18/17 00:00 Intake and Output: 08/18/17 08/18/17 11:59 23:59 Intake Total 240 Balance 240 - Medications Medications: Current Medications Acetaminophen (Tylenol 325mg Tab) 650 mg PO Q6 PRN PRN Reason: Headache Last Admin: 08/16/17 17:23 Dose: 650 mg Albuterol/Ipratropium (Duoneb 3 Mg/0.5 Mg (3 Ml) Ud) 3 ml INH RQ6 [facility] Last Admin: 08/18/17 13:40 Dose: 3 ml Digoxin (Digoxin) 0.125 mg PO DAILY@1800 [facility] Last Admin: 08/17/17 18:28 Dose: 0.125 mg Ergocalciferol (Drisdol 50,000 Intl Units Cap) 1 cap PO QWK [facility] Folic Acid (Folic Acid) 1 mg PO DAILY [facility] Last Admin: 08/18/17 09:40 Dose: 1 mg Doxycycline Hyclate 100 mg/ (Sodium Chloride) 100 mls @ 100 mls/hr IVPB Q12H [facility] PRN Reason: Protocol Last Admin: 08/18/17 09:41 Dose: 100 mls/hr Methylprednisolone (Solu-Medrol) 40 mg IVPB Q12 [facility] Last Admin: 08/18/17 09:40 Dose: 40 mg Metoprolol Tartrate (Lopressor) 50 mg PO BID [facility] Last Admin: 08/18/17 11:14 Dose: 50 mg Montelukast Sodium (Singulair) 10 mg PO HS [facility] Last Admin: 08/17/17 21:32 Dose: 10 mg Mupirocin (Bactroban 2% Nasal) 0.25 gm ESAU BID [facility] Stop: 08/23/17 18:01 Pantoprazole Sodium (Protonix Ec Tab) 40 mg PO DAILY [facility] Last Admin: 08/18/17 09:40 Dose: 40 mg Warfarin Sodium (Coumadin) 5 mg PO 1800 [facility] Stop: 08/18/17 18:01 - Labs Labs: 08/18/17 06:45 08/18/17 06:45 PT 32.4 SECONDS (9.7-12.2) H* 08/18/17 06:45 INR 3.0 08/18/17 06:45 APTT 34 SECONDS (21-34) 08/16/17 07:23
[2017-08-18] MEDS: Mupirocin 2% Ointment (NASAL) NAS SCH (17:32)
[2017-08-18] MEDS: Digoxin 125 mcg (0.125 mg) Tab PO SCH (17:33)
--- NOTE | 2017-08-18 23:41 | CP.PCM.PN ---
Subjective - Date & Time of Evaluation Date of Evaluation: 08/18/17 Time of Evaluation: 23:41 - Subjective Subjective: CHIEF COMPLAINTS TODAY : afebrile, feeling better less wheezing. no SOB ROS. HEENT : N. Resp : +VE OCC COUGH, +VE wheezing , NO pleuritic CP ,or hemoptysis Cardio : No anginal CP, PND, orthopnea, palpitation GI : No abd.pain, n/v ,diarrhea or GI bleeding . WILD OYSTER HARVESTER : No headache, vertigo, focal deficit. Musculoskel : No joint swelling , Derm : No rash Psych : Normal affect. Ext : No swelling ,calf pain PE. Pt. is alert awake in no distress. V.S As noted in the chart Head ,ear nose,throat and eyes : Normal. Neck : Supple with normal carotids. Lungs: LESS B/L WHEEZE Heart : opening and closing metallic sounds at aortic and mitral area. There is a systolic ejection murmur in the aortic area grade 2 x 6. Mid diastolic murmur in mitral area. Abd : Soft non tender with normal bowel sounds. Neuro : Moves all ext. with no localized deficit. Ext : No edema with intact pulses.Non tender calves Derm : No rashes or decubitus ulcer. LABS/RADIOLOGY: REVIEWED Objective - Vital Signs/Intake and Output Vital Signs (last 24 hours): Temp Pulse Resp BP Pulse Ox 97.8 F 61 20 139/62 98 08/18/17 15:00 08/18/17 15:00 08/18/17 15:00 08/18/17 15:00 08/18/17 15:00 Intake and Output: 08/18/17 08/19/17 18:59 06:59 Intake Total 240 300 Balance 240 300 - Medications Medications: Current Medications Acetaminophen (Tylenol 325mg Tab) 650 mg PO Q6 PRN PRN Reason: Headache Last Admin: 08/16/17 17:23 Dose: 650 mg Albuterol/Ipratropium (Duoneb 3 Mg/0.5 Mg (3 Ml) Ud) 3 ml INH RQ6 [facility] Last Admin: 08/18/17 22:34 Dose: 3 ml Digoxin (Digoxin) 0.125 mg PO DAILY@1800 [facility] Last Admin: 08/18/17 17:33 Dose: 0.125 mg Ergocalciferol (Drisdol 50,000 Intl Units Cap) 1 cap PO QWK [facility] Folic Acid (Folic Acid) 1 mg PO DAILY [facility] Last Admin: 08/18/17 09:40 Dose: 1 mg Doxycycline Hyclate 100 mg/ (Sodium Chloride) 100 mls @ 100 mls/hr IVPB Q12H [facility] PRN Reason: Protocol Last Admin: 08/18/17 21:31 Dose: 100 mls/hr Methylprednisolone (Solu-Medrol) 40 mg IVPB Q12 [facility] Last Admin: 08/18/17 21:20 Dose: 40 mg Metoprolol Tartrate (Lopressor) 50 mg PO BID [facility] Last Admin: 08/18/17 17:35 Dose: 50 mg Montelukast Sodium (Singulair) 10 mg PO HS [facility] Last Admin: 08/18/17 21:19 Dose: 10 mg Mupirocin (Bactroban 2% Nasal) 0.25 gm ESAU BID [facility] Stop: 08/23/17 18:01 Last Admin: 08/18/17 17:32 Dose: 0.25 gm Pantoprazole Sodium (Protonix Ec Tab) 40 mg PO DAILY [facility] Last Admin: 08/18/17 09:40 Dose: 40 mg - Labs Labs: 08/18/17 06:45 08/18/17 17:20 PT 32.4 SECONDS (9.7-12.2) H* 08/18/17 06:45 INR 3.0 08/18/17 06:45 APTT 34 SECONDS (21-34) 08/16/17 07:23 Assessment and Plan (1) Fever and chills Assessment & Plan: Blood cultures negative TODATE.. Continue IV Vibramycin 100 mg every 12 hourly for now for possibility lower respiratory tract infection.08/16/17 Status: Acute (2) Symptomatic anemia Assessment & Plan: H/H STABLE RETIC HIGH LDH HIGH HEMATOLOGY ON BOARD. Status: Acute (3) Mechanical heart valve present Status: Acute (4) Asthma Assessment & Plan: IMPROVING. CPM Status: Acute (5) Hypertension Status: Acute
[2017-08-19] MEDS: Albuterol-Ipratrop 3 mg / 0.5 (3 ml) UD INH SCH ×4 (01:43→19:35)
[2017-08-19 07:31] LABS: INR 3.7
[2017-08-19 07:34] LABS: BASO % 0.1 % (0.0-2.0); HEMOGLOBIN 8.2 g/dL (11.0-16.0); LYMPH # 0.5 K/uL (1.0-4.3); LYMPH % 9.1 % (20.0-40.0); MEAN CELL VOLUME 90.4 fL (81.0-99.0); MEAN CORPUSCULAR HEMOGLOBIN 30.7 pg (27.0-31.0); MEAN CORPUSCULAR HGB CONC 33.9 g/dL (33.0-37.0); MEAN PLATELET VOLUME 11.7 fL (7.2-11.7); MONO # 0.3 K/uL (0.0-0.8); MONO % 4.8 % (0.0-10.0); NEUT # 4.5 K/uL (1.8-7.0); PLATELET COUNT 114 K/uL (130-400); RBC 2.68 Mil/uL (3.80-5.20); RED CELL DISTRIBUTION WIDTH 16.8 % (11.5-14.5); WHITE BLOOD COUNT 5.3 K/uL (4.8-10.8)
[2017-08-19 07:36] LABS: ALB/GLOB RATIO 1.2 (1.0-2.1); ALBUMIN 3.8 g/dL (3.5-5.0); ALT/SGPT 28 U/L (9-52); AST/SGOT 45 U/L (14-36); BLOOD UREA NITROGEN 38 mg/dL (7-17); GFR AFRICAN-AMERICAN > 60; GFR NON-AFRICAN AMERICAN > 60
[2017-08-19 07:42] LABS: PROTHROMBIN TIME 40.6 SECONDS (9.7-12.2)
[2017-08-19 09:53] LABS: BANDS 1 % (0-2); LYMPHOCYTE 9 % (20-40); MONOCYTE 3 % (0-10); NEUTROPHIL 87 % (50-75); PLATELET ESTIMATE SLIGHTLY DECREASED (NORMAL); TOTAL CELLS COUNTED 100
[2017-08-19 09:54] LABS: ANISOCYTOSIS SLIGHT
[2017-08-19] MEDS: MethylPREDNISolone 40 mg Vial IVPB SCH ×2 (10:41→21:35)
[2017-08-19] MEDS: Pantoprazole 40 mg EC Tab PO SCH (10:42)
[2017-08-19] MEDS: Mupirocin 2% Ointment (NASAL) NAS SCH ×2 (10:42→18:15)
--- NOTE | 2017-08-19 13:45 | CP.PCM.PN ---
Subjective - Date & Time of Evaluation Date of Evaluation: 08/19/17 Time of Evaluation: 13:44 - Subjective Subjective: CHIEF COMPLAINTS TODAY : afebrile, NO NEW COMPLAINTS LOOKS PALE no SOB ROS. HEENT : N. Resp : +VE OCC COUGH, LESS+VE wheezing , NO pleuritic CP ,or hemoptysis Cardio : No anginal CP, PND, orthopnea, palpitation GI : No abd.pain, n/v ,diarrhea or GI bleeding . SPICE MILLER : No headache, vertigo, focal deficit. Musculoskel : No joint swelling , Derm : No rash Psych : Normal affect. Ext : No swelling ,calf pain PE. Pt. is alert awake in no distress. V.S As noted in the chart Head ,ear nose,throat and eyes : Normal. Neck : Supple with normal carotids. Lungs: LESS B/L WHEEZE Heart : opening and closing metallic sounds at aortic and mitral area. There is a systolic ejection murmur in the aortic area grade 2 x 6. Mid diastolic murmur in mitral area. Abd : Soft non tender with normal bowel sounds. Neuro : Moves all ext. with no localized deficit. Ext : No edema with intact pulses.Non tender calves Derm : No rashes or decubitus ulcer. LABS/RADIOLOGY: REVIEWED wbc 5.3 H/H /8.2/ 24.2. [id number]. INR 3.7 LFTS IMPROVING Objective - Vital Signs/Intake and Output Vital Signs (last 24 hours): Temp Pulse Resp BP Pulse Ox 98.0 F 60 20 136/68 98 08/19/17 11:50 08/19/17 11:50 08/19/17 11:50 08/19/17 11:50 08/19/17 11:50 Intake and Output: 08/19/17 08/19/17 06:59 18:59 Intake Total 500 Balance 500 - Medications Medications: Current Medications Acetaminophen (Tylenol 325mg Tab) 650 mg PO Q6 PRN PRN Reason: Headache Last Admin: 08/16/17 17:23 Dose: 650 mg Albuterol/Ipratropium (Duoneb 3 Mg/0.5 Mg (3 Ml) Ud) 3 ml INH RQ6 [facility] Last Admin: 08/19/17 13:38 Dose: 3 ml Digoxin (Digoxin) 0.125 mg PO DAILY@1800 [facility] Last Admin: 08/18/17 17:33 Dose: 0.125 mg Ergocalciferol (Drisdol 50,000 Intl Units Cap) 1 cap PO QWK [facility] Folic Acid (Folic Acid) 1 mg PO DAILY [facility] Last Admin: 08/19/17 10:42 Dose: 1 mg Doxycycline Hyclate 100 mg/ (Sodium Chloride) 100 mls @ 100 mls/hr IVPB Q12H [facility] PRN Reason: Protocol Last Admin: 08/19/17 10:41 Dose: 100 mls/hr Methylprednisolone (Solu-Medrol) 40 mg IVPB Q12 [facility] Last Admin: 08/19/17 10:41 Dose: 40 mg Metoprolol Tartrate (Lopressor) 50 mg PO BID [facility] Last Admin: 08/19/17 10:44 Dose: 50 mg Montelukast Sodium (Singulair) 10 mg PO HS [facility] Last Admin: 08/18/17 21:19 Dose: 10 mg Mupirocin (Bactroban 2% Nasal) 0.25 gm ESAU BID [facility] Stop: 08/23/17 18:01 Last Admin: 08/19/17 10:42 Dose: 0.25 gm Pantoprazole Sodium (Protonix Ec Tab) 40 mg PO DAILY [facility] Last Admin: 08/19/17 10:42 Dose: 40 mg - Labs Labs: 08/19/17 07:16 08/19/17 07:16 PT 40.6 SECONDS (9.7-12.2) H* D 08/19/17 07:16 INR 3.7 08/19/17 07:16 APTT 34 SECONDS (21-34) 08/16/17 07:23 Assessment and Plan (1) Fever and chills Assessment & Plan: IMPROVED. BLOOD CULTURES NEGATIVE. URINE CULTURE < 10,000ORGS/CFU/ML- MRSA NARIS -DETECTED bACTROBAN CREAM LOCALLY TO NARIS TWICE A DAY X 7 DAYS CONTINUE IV DOXYCYCLINE 100MG EVERY 12 HOURLY.08/16/17- DAY 4 MAY SWITCH TO BY MOUTH ON DC X 3 DAYS MORE. CASE DISCUSSED WITH NUCLEAR WASTE PROCESS OPERATOR MS PRITCHETT. Status: Acute (2) Symptomatic anemia Assessment & Plan: HEMATOLOGY ONBOARD. ? bLOOD TRANSFUSION Status: Acute (3) Mechanical heart valve present Status: Acute (4) Asthma Assessment & Plan: IMPROVING. cONTINUE PRESENT MANAGEMENT Status: Acute (5) Hypertension Status: Acute
--- NOTE | 2017-08-19 14:21 | CP.PCM.DIS ---
Provider - Provider Date of Admission: 08/17/17 18:45 Attending physician: Luci Ornelas MD Time Spent in preparation of Discharge (in minutes): 30 Hospital Course - Lab Results Lab Results: Micro Results 08/16/17 17:00 Blood-Venous Blood Culture - Preliminary NO GROWTH AFTER 48 HOURS 08/16/17 17:30 Blood-Venous Blood Culture - Preliminary NO GROWTH AFTER 48 HOURS 08/16/17 Unknown Urine,Clean Catch Urine Culture - Final <10,000 CFU/ML. MULTIPLE SPECIES. PROBABLE CONTAMINATION. 08/16/17 06:47 Naris MRSA Culture (Admit) - Final MRSA DETECTED Most Recent Lab Values WBC 5.3 K/uL (4.8-10.8) 08/19/17 07:16 RBC 2.68 Mil/uL (3.80-5.20) L 08/19/17 07:16 Hgb 8.2 g/dL (11.0-16.0) L 08/19/17 07:16 Hct 24.2 % (34.0-47.0) L 08/19/17 07:16 MCV 90.4 fL (81.0-99.0) 08/19/17 07:16 MCH 30.7 pg (27.0-31.0) 08/19/17 07:16 MCHC 33.9 g/dL (33.0-37.0) 08/19/17 07:16 RDW 16.8 % (11.5-14.5) H 08/19/17 07:16 Plt Count 114 K/uL (130-400) L 08/19/17 07:16 MPV 11.7 fL (7.2-11.7) 08/19/17 07:16 Neut % (Auto) 86.0 % (50.0-75.0) H 08/19/17 07:16 Lymph % (Auto) 9.1 % (20.0-40.0) L 08/19/17 07:16 [place] % (Auto) 4.8 % (0.0-10.0) 08/19/17 07:16 Eos % (Auto) 0.0 % (0.0-4.0) 08/19/17 07:16 Baso % (Auto) 0.1 % (0.0-2.0) 08/19/17 07:16 Neut # (Auto) 4.5 K/uL (1.8-7.0) 08/19/17 07:16 Lymph # (Auto) 0.5 K/uL (1.0-4.3) L 08/19/17 07:16 [place] # (Auto) 0.3 K/uL (0.0-0.8) 08/19/17 07:16 Eos # (Auto) 0.0 K/uL (0.0-0.7) 08/19/17 07:16 Baso # (Auto) 0.0 K/uL (0.0-0.2) 08/19/17 07:16 Neutrophils % (Manual) 87 % (50-75) H 08/19/17 07:16 Band Neutrophils % 1 % (0-2) 08/19/17 07:16 Lymphocytes % (Manual) 9 % (20-40) L 08/19/17 07:16 Monocytes % (Manual) 3 % (0-10) 08/19/17 07:16 Toxic Granulation Present 08/18/17 06:45 Platelet Estimate Slightly decreased (NORMAL) L 08/19/17 07:16 Large Platelets Present 08/18/17 06:45 Polychromasia Slight 08/18/17 06:45 Hypochromasia (manual) Slight 08/18/17 06:45 Anisocytosis (manual) Slight 08/19/17 07:16 Microcytosis (manual) Slight 08/17/17 07:46 ESR 35 mm/hr (0-20) H 08/17/17 07:46 Retic Count 4.5 % (0.5-1.5) H 08/17/17 07:46 Haptoglobin < 20.0 mg/dL (30.0-200.0) L 08/17/17 17:09 PT 40.6 SECONDS (9.7-12.2) H* D 08/19/17 07:16 INR 3.7 08/19/17 07:16 APTT 34 SECONDS (21-34) 08/16/17 07:23 Sodium 138 mmol/L (132-148) 08/19/17 07:16 Potassium 5.2 mmol/L (3.6-5.2) 08/19/17 07:16 Chloride 109 mmol/L (98-107) H 08/19/17 07:16 Carbon Dioxide 22 mmol/L (22-30) 08/19/17 07:16 Anion Gap 13 (10-20) 08/19/17 07:16 BUN 38 mg/dL (7-17) H 08/19/17 07:16 Creatinine 0.8 mg/dL (0.7-1.2) 08/19/17 07:16 Est GFR ( Amer) > 60 08/19/17 07:16 Est GFR (Non-Af Amer) > 60 08/19/17 07:16 Random Glucose 155 mg/dL (65-105) H 08/19/17 07:16 Calcium 9.0 mg/dl (8.6-10.4) 08/19/17 07:16 Ferritin 89.6 ng/mL 08/17/17 17:09 Total Bilirubin 1.0 mg/dL (0.2-1.3) 08/19/17 07:16 Direct Bilirubin 0.5 mg/dL (0.0-0.4) H 08/17/17 07:46 AST 45 U/L (14-36) H 08/19/17 07:16 ALT 28 U/L (9-52) 08/19/17 07:16 Alkaline Phosphatase 57 U/L (38-126) 08/19/17 07:16 Lactate Dehydrogenase 3892 U/L (313-618) H 08/17/17 17:09 C-Reactive Protein 52.40 mg/L (0.0-9.9) H 08/17/17 07:46 Total Protein 7.0 g/dL (6.3-8.3) 08/19/17 07:16 Albumin 3.8 g/dL (3.5-5.0) 08/19/17 07:16 Globulin 3.2 gm/dL (2.2-3.9) 08/19/17 07:16 Albumin/Globulin Ratio 1.2 (1.0-2.1) 08/19/17 07:16 Vitamin B12 620 pg/mL (239-931) 08/17/17 17:09 Folate 17.9 ng/mL 08/17/17 17:09 Urine Color Yellow (YELLOW) 08/15/17 16:51 Urine Clarity Hazy (Clear) 08/15/17 16:51 Urine pH 5.0 (5.0-8.0) 08/15/17 16:51 Ur Specific [place] 1.017 (1.003-1.030) 08/15/17 16:51 Urine Protein Negative mg/dL (NEGATIVE) 08/15/17 16:51 Urine Glucose (UA) Normal mg/dL (Normal) 08/15/17 16:51 Urine Ketones Negative mg/dL (NEGATIVE) 08/15/17 16:51 Urine Blood 2+ (NEGATIVE) H 08/15/17 16:51 Urine Nitrate Negative (NEGATIVE) 08/15/17 16:51 Urine Bilirubin Negative (NEGATIVE) 08/15/17 16:51 Urine Urobilinogen 2.0 mg/dL (0.2-1.0) H 08/15/17 16:51 Ur Leukocyte Esterase Neg [place]/uL (Negative) 08/15/17 16:51 Urine WBC (Auto) 4 /hpf (0-5) 08/15/17 16:51 Urine RBC (Auto) 21 /hpf (0-3) H 08/15/17 16:51 Ur Squamous Epith Cells 1 /hpf (0-5) 08/15/17 16:51 Amorphous Sediment Rare /ul (<OCC) H 08/15/17 16:51 Hyaline Casts 3-5 /lpf (0-2) H 08/15/17 16:51 Stool Occult Blood Negative (NEGATIVE) 08/18/17 08:14 Digoxin 1.1 ng/mL (0.8-2.0) 08/15/17 17:53 Hepatitis A IgM Ab Negative (NEGATIVE) 08/17/17 07:46 Hep Bs Antigen Negative (NEGATIVE) 08/17/17 07:46 Hep B Core IgM Ab Negative (NEGATIVE) 08/17/17 07:46 Hepatitis C Antibody Negative (NEGATIVE) 08/17/17 07:46 Influenza Typ A,B (EIA) Negative for flu a/b (NEGATIVE) 08/17/17 07:46 Mycoplasma pneumon IgM Negative (NEGATIVE) 08/17/17 07:46 Blood Type O POSITIVE 08/15/17 17:03 Antibody Screen Negative 08/15/17 17:03 TIA, Poly Interpret Negative (NEGATIVE) 08/18/17 06:45 - Hospital Course Hospital Course: Patient is admitted from the emergency room with symptomatic anemia. 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 Currently patient is complaining of severe fatigue tiredness. Patient had a hemoglobin of 8.2 mg/dL. PAST HIST. Patient has history of aortic and mitral valve replacement. Hypertension patient was given 1 unit of packed cells. She has hemoglobin stabilized between 9 and 10 mg/dL Patient had no further symptoms. There was no CHF. Patient had UTI and patient responded with IV antibiotics. 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 Discharge Exam - Head Exam Head Exam: ATRAUMATIC Discharge Plan - Follow Up Plan Condition: FAIR Disposition: HOME/ ROUTINE Instructions: Asthma, Adult (DC), Low Salt Diet, Fever, Adult (DC), Prosthetic Heart Valve (DC), Normocytic Normochromic Anemia (DC), Hypertension (DC) Referrals: Jj Copeland MD [Staff Provider] - Eris Martinez MD [Staff Provider] - Luci Ornelas MD [Staff Provider] -
[2017-08-19] MEDS: Digoxin 125 mcg (0.125 mg) Tab PO SCH (18:14)
[2017-08-20] MEDS: Albuterol-Ipratrop 3 mg / 0.5 (3 ml) UD INH SCH ×4 (01:47→19:14)
[2017-08-20 07:33] LABS: ALB/GLOB RATIO 1.2 (1.0-2.1); ALBUMIN 3.8 g/dL (3.5-5.0); ALT/SGPT 35 U/L (9-52); AST/SGOT 57 U/L (14-36); BLOOD UREA NITROGEN 36 mg/dL (7-17); CALCIUM 9.3 mg/dl (8.6-10.4); GFR AFRICAN-AMERICAN > 60; GFR NON-AFRICAN AMERICAN > 60
[2017-08-20 07:39] LABS: HEMOGLOBIN 8.5 g/dL (11.0-16.0); INR 4.2; MEAN CORPUSCULAR HGB CONC 34.5 g/dL (33.0-37.0); RBC 2.73 Mil/uL (3.80-5.20); RED CELL DISTRIBUTION WIDTH 16.6 % (11.5-14.5); WHITE BLOOD COUNT 4.6 K/uL (4.8-10.8)
[2017-08-20 07:44] LABS: PROTHROMBIN TIME 46.1 SECONDS (9.7-12.2)
[2017-08-20 08:40] LABS: BASO % 0.4 % (0.0-2.0); EOS % 0.1 % (0.0-4.0); LYMPH # 0.5 K/uL (1.0-4.3); LYMPH % 10.9 % (20.0-40.0); MONO # 0.2 K/uL (0.0-0.8); MONO % 5.3 % (0.0-10.0); NEUT # 3.8 K/uL (1.8-7.0); NEUT % 83.3 % (50.0-75.0); NRBC % 0.2 % (0.0-2.0)
[2017-08-20] MEDS ORDERED: Sod Polystyrene Sulf 15 gm/60 ml Susp PO ONE (10:00)
[2017-08-20] MEDS: MethylPREDNISolone 40 mg Vial IVPB SCH ×2 (10:04→22:15)
[2017-08-20] MEDS: Mupirocin 2% Ointment (NASAL) NAS SCH ×2 (10:04→17:11)
[2017-08-20] MEDS: Pantoprazole 40 mg EC Tab PO SCH (10:06)
--- NOTE | 2017-08-20 13:47 | CP.PCM.PN ---
Subjective - Date & Time of Evaluation Date of Evaluation: 08/20/17 Time of Evaluation: 13:46 - Subjective Subjective: Prior to discharge patient's INR is increased to 4.2. There is no any visible bleeding. Coumadin is on hold. Patient's potassium is still persistently high at 5.3. Patient was given 1 dose of Kayexalate 30 g. We will observe for another 24 hours and repeat blood tests Objective - Vital Signs/Intake and Output Vital Signs (last 24 hours): Temp Pulse Resp BP Pulse Ox 97.8 F 61 20 149/63 99 08/20/17 08:29 08/20/17 10:02 08/20/17 08:29 08/20/17 10:02 08/20/17 08:29 - Medications Medications: Current Medications Acetaminophen (Tylenol 325mg Tab) 650 mg PO Q6 PRN PRN Reason: Headache Last Admin: 08/16/17 17:23 Dose: 650 mg Albuterol/Ipratropium (Duoneb 3 Mg/0.5 Mg (3 Ml) Ud) 3 ml INH RQ6 [facility] Last Admin: 08/20/17 13:44 Dose: 3 ml Digoxin (Digoxin) 0.125 mg PO DAILY@1800 [facility] Last Admin: 08/19/17 18:14 Dose: 0.125 mg Ergocalciferol (Drisdol 50,000 Intl Units Cap) 1 cap PO QWK [facility] Folic Acid (Folic Acid) 1 mg PO DAILY [facility] Last Admin: 08/20/17 10:04 Dose: 1 mg Doxycycline Hyclate 100 mg/ (Sodium Chloride) 100 mls @ 100 mls/hr IVPB Q12H [facility] PRN Reason: Protocol Last Admin: 08/20/17 10:05 Dose: 100 mls/hr Methylprednisolone (Solu-Medrol) 40 mg IVPB Q12 [facility] Last Admin: 08/20/17 10:04 Dose: 40 mg Metoprolol Tartrate (Lopressor) 50 mg PO BID [facility] Last Admin: 08/20/17 10:04 Dose: 50 mg Montelukast Sodium (Singulair) 10 mg PO HS [facility] Last Admin: 08/19/17 21:34 Dose: 10 mg Mupirocin (Bactroban 2% Nasal) 0.25 gm ESAU BID [facility] Stop: 08/23/17 18:01 Last Admin: 08/20/17 10:04 Dose: 0.25 gm Pantoprazole Sodium (Protonix Ec Tab) 40 mg PO DAILY [facility] Last Admin: 08/20/17 10:06 Dose: 40 mg - Labs Labs: 08/20/17 07:08 08/20/17 07:08 PT 46.1 SECONDS (9.7-12.2) H* D 08/20/17 07:08 INR 4.2 08/20/17 07:08 APTT 34 SECONDS (21-34) 08/16/17 07:23
[2017-08-20] MEDS: Digoxin 125 mcg (0.125 mg) Tab PO SCH (17:10)
--- NOTE | 2017-08-20 22:57 | CP.PCM.PN ---
Subjective - Date & Time of Evaluation Date of Evaluation: 08/20/17 Time of Evaluation: 22:57 - Subjective Subjective: CHIEF COMPLAINTS TODAY : afebrile, NO NEW COMPLAINTS LOOKS PALE no SOB. ROS. HEENT : N. Resp : +VE OCC COUGH, LESS+VE wheezing , NO pleuritic CP ,or hemoptysis Cardio : No anginal CP, PND, orthopnea, palpitation GI : No abd.pain, n/v ,diarrhea or GI bleeding . DIRECTOR STYLE : No headache, vertigo, focal deficit. Musculoskel : No joint swelling , Derm : No rash Psych : Normal affect. Ext : No swelling ,calf pain PE. Pt. is alert awake in no distress. V.S As noted in the chart Head ,ear nose,throat and eyes : Normal. Neck : Supple with normal carotids. Lungs: LESS B/L WHEEZE Heart : opening and closing metallic sounds at aortic and mitral area. There is a systolic ejection murmur in the aortic area grade 2 x 6. Mid diastolic murmur in mitral area. Abd : Soft non tender with normal bowel sounds. Neuro : Moves all ext. with no localized deficit. Ext : No edema with intact pulses.Non tender calves Derm : No rashes or decubitus ulcer. LABS/RADIOLOGY: REVIEWED wbc 4.6 H/H /8.5/24.6 [id number] INR 3.7--> 4.2 high LFTS stable Objective - Vital Signs/Intake and Output Vital Signs (last 24 hours): Temp Pulse Resp BP Pulse Ox 97.5 F L 60 20 149/61 98 08/20/17 22:31 08/20/17 22:31 08/20/17 22:31 08/20/17 22:31 08/20/17 16:00 Intake and Output: 08/20/17 08/21/17 18:59 06:59 Intake Total 730 280 Balance 730 280 - Medications Medications: Current Medications Acetaminophen (Tylenol 325mg Tab) 650 mg PO Q6 PRN PRN Reason: Headache Last Admin: 08/16/17 17:23 Dose: 650 mg Albuterol/Ipratropium (Duoneb 3 Mg/0.5 Mg (3 Ml) Ud) 3 ml INH RQ6 [facility] Last Admin: 08/20/17 19:14 Dose: 3 ml Digoxin (Digoxin) 0.125 mg PO DAILY@1800 [facility] Last Admin: 08/20/17 17:10 Dose: 0.125 mg Ergocalciferol (Drisdol 50,000 Intl Units Cap) 1 cap PO QWK [facility] Folic Acid (Folic Acid) 1 mg PO DAILY [facility] Last Admin: 08/20/17 10:04 Dose: 1 mg Doxycycline Hyclate 100 mg/ (Sodium Chloride) 100 mls @ 100 mls/hr IVPB Q12H [facility] PRN Reason: Protocol Last Admin: 08/20/17 22:15 Dose: 100 mls/hr Methylprednisolone (Solu-Medrol) 40 mg IVPB Q12 [facility] Last Admin: 08/20/17 22:15 Dose: 40 mg Metoprolol Tartrate (Lopressor) 50 mg PO BID [facility] Last Admin: 08/20/17 17:10 Dose: 50 mg Montelukast Sodium (Singulair) 10 mg PO HS [facility] Last Admin: 08/20/17 22:15 Dose: 10 mg Mupirocin (Bactroban 2% Nasal) 0.25 gm ESAU BID [facility] Stop: 08/23/17 18:01 Last Admin: 08/20/17 17:11 Dose: 0.25 gm Pantoprazole Sodium (Protonix Ec Tab) 40 mg PO DAILY [facility] Last Admin: 08/20/17 10:06 Dose: 40 mg - Labs Labs: 08/20/17 07:08 08/20/17 07:08 PT 46.1 SECONDS (9.7-12.2) H* D 08/20/17 07:08 INR 4.2 08/20/17 07:08 APTT 34 SECONDS (21-34) 08/16/17 07:23 Assessment and Plan (1) Fever and chills Assessment & Plan: MRSA NARIS -DETECTED bACTROBAN CREAM LOCALLY TO NARIS TWICE A DAY X 7 DAYS CONTINUE IV DOXYCYCLINE 100MG EVERY 12 HOURLY.08/16/17- DAY 5 MAY SWITCH TO BY MOUTH ON DC X 2 DAYS MORE. Status: Acute (2) Symptomatic anemia Assessment & Plan: as per hematology patient hemolyzing.. Patient for blood transfusion 1 unit PRBC TODAY. Status: Acute (3) Mechanical heart valve present Assessment & Plan: PER PMD. PATIENT UPON DISCHARGE TO SEE HER HEART SURGEON FOR EVALUATION OF THE VALVES Status: Acute (4) Asthma Assessment & Plan: IMPROVING Status: Acute (5) Hypertension Status: Acute
[2017-08-21] MEDS: Albuterol-Ipratrop 3 mg / 0.5 (3 ml) UD INH SCH ×4 (01:20→20:34)
--- NOTE | 2017-08-21 01:47 | CP.PCM.PN ---
Subjective - Date & Time of Evaluation Date of Evaluation: 08/19/17 Time of Evaluation: 20:00 - Subjective Subjective: No complaints. Objective - Vital Signs/Intake and Output Vital Signs (last 24 hours): Temp Pulse Resp BP Pulse Ox 97.5 F L 60 20 149/61 98 08/20/17 22:31 08/20/17 22:31 08/20/17 22:31 08/20/17 22:31 08/20/17 16:00 Intake and Output: 08/20/17 08/21/17 18:59 06:59 Intake Total 730 280 Balance 730 280 - Medications Medications: Current Medications Acetaminophen (Tylenol 325mg Tab) 650 mg PO Q6 PRN PRN Reason: Headache Last Admin: 08/16/17 17:23 Dose: 650 mg Albuterol/Ipratropium (Duoneb 3 Mg/0.5 Mg (3 Ml) Ud) 3 ml INH RQ6 [facility] Last Admin: 08/21/17 01:20 Dose: Not Given Digoxin (Digoxin) 0.125 mg PO DAILY@1800 [facility] Last Admin: 08/20/17 17:10 Dose: 0.125 mg Ergocalciferol (Drisdol 50,000 Intl Units Cap) 1 cap PO QWK [facility] Folic Acid (Folic Acid) 1 mg PO DAILY [facility] Last Admin: 08/20/17 10:04 Dose: 1 mg Doxycycline Hyclate 100 mg/ (Sodium Chloride) 100 mls @ 100 mls/hr IVPB Q12H [facility] PRN Reason: Protocol Last Admin: 08/20/17 22:15 Dose: 100 mls/hr Methylprednisolone (Solu-Medrol) 40 mg IVPB Q12 [facility] Last Admin: 08/20/17 22:15 Dose: 40 mg Metoprolol Tartrate (Lopressor) 50 mg PO BID [facility] Last Admin: 08/20/17 17:10 Dose: 50 mg Montelukast Sodium (Singulair) 10 mg PO HS [facility] Last Admin: 08/20/17 22:15 Dose: 10 mg Mupirocin (Bactroban 2% Nasal) 0.25 gm ESAU BID [facility] Stop: 08/23/17 18:01 Last Admin: 08/20/17 17:11 Dose: 0.25 gm Pantoprazole Sodium (Protonix Ec Tab) 40 mg PO DAILY [facility] Last Admin: 08/20/17 10:06 Dose: 40 mg - Labs Labs: 08/20/17 07:08 08/20/17 07:08 PT 46.1 SECONDS (9.7-12.2) H* D 08/20/17 07:08 INR 4.2 08/20/17 07:08 APTT 34 SECONDS (21-34) 08/16/17 07:23 - Head Exam Head Exam: ATRAUMATIC - Eye Exam Eye Exam: Normal appearance - ENT Exam ENT Exam: Mucous Membranes Dry - Respiratory Exam Respiratory Exam: NORMAL BREATHING PATTERN - Cardiovascular Exam Cardiovascular Exam: +S1, +S2 - GI/Abdominal Exam GI & Abdominal Exam: Normal Bowel Sounds Assessment and Plan (1) Hemolytic anemia Assessment & Plan: valvular hemolysis on folic acid transfusion support PRN Status: Acute (2) Thrombocytopenia Assessment & Plan: consumptive from valvular hemolysis Status: Acute (3) Coagulopathy Assessment & Plan: secondary to coumadin Status: Acute
--- NOTE | 2017-08-21 01:50 | CP.PCM.PN ---
Subjective - Date & Time of Evaluation Date of Evaluation: 08/19/17 Time of Evaluation: 20:00 - Subjective Subjective: No complaints, feeling better. Objective - Vital Signs/Intake and Output Vital Signs (last 24 hours): Temp Pulse Resp BP Pulse Ox 97.5 F L 60 20 149/61 98 08/20/17 22:31 08/20/17 22:31 08/20/17 22:31 08/20/17 22:31 08/20/17 16:00 Intake and Output: 08/20/17 08/21/17 18:59 06:59 Intake Total 730 280 Balance 730 280 - Medications Medications: Current Medications Acetaminophen (Tylenol 325mg Tab) 650 mg PO Q6 PRN PRN Reason: Headache Last Admin: 08/16/17 17:23 Dose: 650 mg Albuterol/Ipratropium (Duoneb 3 Mg/0.5 Mg (3 Ml) Ud) 3 ml INH RQ6 [facility] Last Admin: 08/21/17 01:20 Dose: Not Given Digoxin (Digoxin) 0.125 mg PO DAILY@1800 [facility] Last Admin: 08/20/17 17:10 Dose: 0.125 mg Ergocalciferol (Drisdol 50,000 Intl Units Cap) 1 cap PO QWK [facility] Folic Acid (Folic Acid) 1 mg PO DAILY [facility] Last Admin: 08/20/17 10:04 Dose: 1 mg Doxycycline Hyclate 100 mg/ (Sodium Chloride) 100 mls @ 100 mls/hr IVPB Q12H [facility] PRN Reason: Protocol Last Admin: 08/20/17 22:15 Dose: 100 mls/hr Methylprednisolone (Solu-Medrol) 40 mg IVPB Q12 [facility] Last Admin: 08/20/17 22:15 Dose: 40 mg Metoprolol Tartrate (Lopressor) 50 mg PO BID [facility] Last Admin: 08/20/17 17:10 Dose: 50 mg Montelukast Sodium (Singulair) 10 mg PO HS [facility] Last Admin: 08/20/17 22:15 Dose: 10 mg Mupirocin (Bactroban 2% Nasal) 0.25 gm ESAU BID [facility] Stop: 08/23/17 18:01 Last Admin: 08/20/17 17:11 Dose: 0.25 gm Pantoprazole Sodium (Protonix Ec Tab) 40 mg PO DAILY [facility] Last Admin: 08/20/17 10:06 Dose: 40 mg - Labs Labs: 08/20/17 07:08 08/20/17 07:08 PT 46.1 SECONDS (9.7-12.2) H* D 08/20/17 07:08 INR 4.2 08/20/17 07:08 APTT 34 SECONDS (21-34) 08/16/17 07:23 - Head Exam Head Exam: ATRAUMATIC - Eye Exam Eye Exam: Normal appearance - ENT Exam ENT Exam: Mucous Membranes Dry - Respiratory Exam Respiratory Exam: NORMAL BREATHING PATTERN - Cardiovascular Exam Cardiovascular Exam: +S1, +S2 - GI/Abdominal Exam GI & Abdominal Exam: Normal Bowel Sounds Assessment and Plan (1) Hemolytic anemia Assessment & Plan: suspect valvular hemolysis direct beck negative normal iron/b12/folate stores on folic acid s/p PRBC transfusion Status: Acute (2) Thrombocytopenia Assessment & Plan: mild likely consumptive from valvular hemolysis Status: Acute (3) Coagulopathy Assessment & Plan: secondary to coumadin Status: Acute
--- NOTE | 2017-08-21 01:55 | CP.PCM.PN ---
Subjective - Date & Time of Evaluation Date of Evaluation: 08/20/17 Time of Evaluation: 14:00 - Subjective Subjective: Breathing better. Objective - Vital Signs/Intake and Output Vital Signs (last 24 hours): Temp Pulse Resp BP Pulse Ox 97.5 F L 60 20 149/61 98 08/20/17 22:31 08/20/17 22:31 08/20/17 22:31 08/20/17 22:31 08/20/17 16:00 Intake and Output: 08/20/17 08/21/17 18:59 06:59 Intake Total 730 280 Balance 730 280 - Medications Medications: Current Medications Acetaminophen (Tylenol 325mg Tab) 650 mg PO Q6 PRN PRN Reason: Headache Last Admin: 08/16/17 17:23 Dose: 650 mg Albuterol/Ipratropium (Duoneb 3 Mg/0.5 Mg (3 Ml) Ud) 3 ml INH RQ6 [facility] Last Admin: 08/21/17 01:20 Dose: Not Given Digoxin (Digoxin) 0.125 mg PO DAILY@1800 [facility] Last Admin: 08/20/17 17:10 Dose: 0.125 mg Ergocalciferol (Drisdol 50,000 Intl Units Cap) 1 cap PO QWK [facility] Folic Acid (Folic Acid) 1 mg PO DAILY [facility] Last Admin: 08/20/17 10:04 Dose: 1 mg Doxycycline Hyclate 100 mg/ (Sodium Chloride) 100 mls @ 100 mls/hr IVPB Q12H [facility] PRN Reason: Protocol Last Admin: 08/20/17 22:15 Dose: 100 mls/hr Methylprednisolone (Solu-Medrol) 40 mg IVPB Q12 [facility] Last Admin: 08/20/17 22:15 Dose: 40 mg Metoprolol Tartrate (Lopressor) 50 mg PO BID [facility] Last Admin: 08/20/17 17:10 Dose: 50 mg Montelukast Sodium (Singulair) 10 mg PO HS [facility] Last Admin: 08/20/17 22:15 Dose: 10 mg Mupirocin (Bactroban 2% Nasal) 0.25 gm ESAU BID [facility] Stop: 08/23/17 18:01 Last Admin: 08/20/17 17:11 Dose: 0.25 gm Pantoprazole Sodium (Protonix Ec Tab) 40 mg PO DAILY [facility] Last Admin: 08/20/17 10:06 Dose: 40 mg - Labs Labs: 08/20/17 07:08 08/20/17 07:08 PT 46.1 SECONDS (9.7-12.2) H* D 08/20/17 07:08 INR 4.2 08/20/17 07:08 APTT 34 SECONDS (21-34) 08/16/17 07:23 - Head Exam Head Exam: ATRAUMATIC - Eye Exam Eye Exam: Normal appearance - ENT Exam ENT Exam: Mucous Membranes Dry - Respiratory Exam Respiratory Exam: NORMAL BREATHING PATTERN - Cardiovascular Exam Cardiovascular Exam: +S1, +S2 - GI/Abdominal Exam GI & Abdominal Exam: Normal Bowel Sounds Assessment and Plan (1) Hemolytic anemia Assessment & Plan: suspect valvular hemolysis direct beck negative normal iron, b12, folate stores on folic acid s/p PRBC transfusion Status: Acute (2) Thrombocytopenia Assessment & Plan: mild likely consumptive from valvular hemolysis Status: Acute (3) Coagulopathy Assessment & Plan: secondary to coumadin Status: Acute
[2017-08-21 07:50] LABS: BASO % 0.1 % (0.0-2.0); LYMPH # 0.5 K/uL (1.0-4.3); MONO # 0.2 K/uL (0.0-0.8); NEUT # 3.4 K/uL (1.8-7.0)
[2017-08-21 07:56] LABS: HEMOGLOBIN 9.6 g/dL (11.0-16.0); LYMPH % 11.6 % (20.0-40.0); MEAN CELL VOLUME 90.7 fL (81.0-99.0); MEAN CORPUSCULAR HEMOGLOBIN 30.8 pg (27.0-31.0); MEAN PLATELET VOLUME 11.6 fL (7.2-11.7); MONO % 4.9 % (0.0-10.0); NEUT % 83.4 % (50.0-75.0); NRBC % 0.2 % (0.0-2.0); RBC 3.11 Mil/uL (3.80-5.20); RED CELL DISTRIBUTION WIDTH 16.3 % (11.5-14.5)
[2017-08-21 07:59] LABS: INR 2.7; PROTHROMBIN TIME 29.8 SECONDS (9.7-12.2)
[2017-08-21 08:02] LABS: ALBUMIN 3.6 g/dL (3.5-5.0); BLOOD UREA NITROGEN 32 mg/dL (7-17); GFR AFRICAN-AMERICAN > 60; GFR NON-AFRICAN AMERICAN > 60
[2017-08-21 08:03] LABS: ALB/GLOB RATIO 1.2 (1.0-2.1); ALT/SGPT 38 U/L (9-52); AST/SGOT 59 U/L (14-36)
[2017-08-21] MEDS: Pantoprazole 40 mg EC Tab PO SCH (09:22)
[2017-08-21] MEDS: MethylPREDNISolone 40 mg Vial IVPB SCH ×2 (09:22→21:30)
[2017-08-21] MEDS: Mupirocin 2% Ointment (NASAL) NAS SCH ×2 (09:22→17:02)
--- NOTE | 2017-08-21 11:52 | CP.PCM.PN ---
Subjective - Date & Time of Evaluation Date of Evaluation: 08/21/17 Time of Evaluation: 11:51 - Subjective Subjective: afebrile, no complaints . hematology f/u noted. Objective - Vital Signs/Intake and Output Vital Signs (last 24 hours): Temp Pulse Resp BP Pulse Ox 97.6 F 60 20 151/59 H 97 08/21/17 07:00 08/21/17 07:00 08/21/17 07:00 08/21/17 07:00 08/21/17 07:00 Intake and Output: 08/21/17 08/21/17 06:59 18:59 Intake Total 280 Balance 280 - Medications Medications: Current Medications Acetaminophen (Tylenol 325mg Tab) 650 mg PO Q6 PRN PRN Reason: Headache Last Admin: 08/16/17 17:23 Dose: 650 mg Albuterol/Ipratropium (Duoneb 3 Mg/0.5 Mg (3 Ml) Ud) 3 ml INH RQ6 [facility] Last Admin: 08/21/17 07:47 Dose: 3 ml Digoxin (Digoxin) 0.125 mg PO DAILY@1800 [facility] Last Admin: 08/20/17 17:10 Dose: 0.125 mg Ergocalciferol (Drisdol 50,000 Intl Units Cap) 1 cap PO QWK [facility] Folic Acid (Folic Acid) 1 mg PO DAILY [facility] Last Admin: 08/21/17 09:22 Dose: 1 mg Doxycycline Hyclate 100 mg/ (Sodium Chloride) 100 mls @ 100 mls/hr IVPB Q12H [facility] PRN Reason: Protocol Last Admin: 08/21/17 09:57 Dose: 100 mls/hr Methylprednisolone (Solu-Medrol) 40 mg IVPB Q12 [facility] Last Admin: 08/21/17 09:22 Dose: 40 mg Metoprolol Tartrate (Lopressor) 50 mg PO BID [facility] Last Admin: 08/21/17 09:22 Dose: 50 mg Montelukast Sodium (Singulair) 10 mg PO HS [facility] Last Admin: 08/20/17 22:15 Dose: 10 mg Mupirocin (Bactroban 2% Nasal) 0.25 gm ESAU BID [facility] Stop: 08/23/17 18:01 Last Admin: 08/21/17 09:22 Dose: 0.25 gm Pantoprazole Sodium (Protonix Ec Tab) 40 mg PO DAILY [facility] Last Admin: 08/21/17 09:22 Dose: 40 mg Warfarin Sodium (Coumadin) 3 mg PO 1800 [facility] Stop: 08/21/17 18:01 - Labs Labs: 08/21/17 07:38 08/21/17 07:38 PT 29.8 SECONDS (9.7-12.2) H* D 08/21/17 07:38 INR 2.7 D 08/21/17 07:38 APTT 34 SECONDS (21-34) 08/16/17 07:23 - Constitutional Appears: No Acute Distress - Head Exam Head Exam: NORMAL INSPECTION - Eye Exam Eye Exam: EOMI, PERRL - ENT Exam ENT Exam: Normal Oropharynx - Neck Exam Neck Exam: Normal Inspection - Cardiovascular Exam Cardiovascular Exam: REGULAR RHYTHM, +S1, +S2, Murmur (+VE CLICK OF VALVE PRESENT) - GI/Abdominal Exam GI & Abdominal Exam: Soft, Normal Bowel Sounds. absent: Organomegaly - Extremities Exam Extremities Exam: Normal Capillary Refill. absent: Calf Tenderness, Pedal Edema - Neurological Exam Neurological Exam: Awake, CN II-XII Intact, Oriented x3, Reflexes Normal - Psychiatric Exam Psychiatric exam: Normal Mood - Skin Skin Exam: Normal Color, Warm Assessment and Plan (1) Fever and chills Assessment & Plan: MRSA NARIS -DETECTED bACTROBAN CREAM LOCALLY TO NARIS TWICE A DAY X 7 DAYS CONTINUE IV DOXYCYCLINE 100MG EVERY 12 HOURLY.08/16/17- DAY 6 JUNE DC IV DOXCYCLINE ON DC. NO NEED FOR OP ABX. Status: Acute (2) Symptomatic anemia Status: Acute (3) Mechanical heart valve present Status: Acute (4) Asthma Assessment & Plan: STABLE. CPM Status: Acute (5) Hypertension Status: Acute
--- NOTE | 2017-08-21 11:56 | CP.PCM.PN ---
Subjective - Date & Time of Evaluation Date of Evaluation: 08/21/17 Time of Evaluation: 11:55 - Subjective Subjective: repeat hemoglobin after 1 pack cells is 9.6. There is no any visible bleeding. INR is now 2.7, plan will give 3 mg of Coumadin and check the INR in the a.m. 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 Objective - Vital Signs/Intake and Output Vital Signs (last 24 hours): Temp Pulse Resp BP Pulse Ox 97.6 F 60 20 151/59 H 97 08/21/17 07:00 08/21/17 07:00 08/21/17 07:00 08/21/17 07:00 08/21/17 07:00 Intake and Output: 08/20/17 08/21/17 23:59 11:59 Intake Total 1010 Balance 1010 - Medications Medications: Current Medications Acetaminophen (Tylenol 325mg Tab) 650 mg PO Q6 PRN PRN Reason: Headache Last Admin: 08/16/17 17:23 Dose: 650 mg Albuterol/Ipratropium (Duoneb 3 Mg/0.5 Mg (3 Ml) Ud) 3 ml INH RQ6 [facility] Last Admin: 08/21/17 07:47 Dose: 3 ml Digoxin (Digoxin) 0.125 mg PO DAILY@1800 [facility] Last Admin: 08/20/17 17:10 Dose: 0.125 mg Ergocalciferol (Drisdol 50,000 Intl Units Cap) 1 cap PO QWK [facility] Folic Acid (Folic Acid) 1 mg PO DAILY [facility] Last Admin: 08/21/17 09:22 Dose: 1 mg Doxycycline Hyclate 100 mg/ (Sodium Chloride) 100 mls @ 100 mls/hr IVPB Q12H [facility] PRN Reason: Protocol Last Admin: 08/21/17 09:57 Dose: 100 mls/hr Methylprednisolone (Solu-Medrol) 40 mg IVPB Q12 [facility] Last Admin: 08/21/17 09:22 Dose: 40 mg Metoprolol Tartrate (Lopressor) 50 mg PO BID [facility] Last Admin: 08/21/17 09:22 Dose: 50 mg Montelukast Sodium (Singulair) 10 mg PO HS [facility] Last Admin: 08/20/17 22:15 Dose: 10 mg Mupirocin (Bactroban 2% Nasal) 0.25 gm ESAU BID [facility] Stop: 08/23/17 18:01 Last Admin: 08/21/17 09:22 Dose: 0.25 gm Pantoprazole Sodium (Protonix Ec Tab) 40 mg PO DAILY [facility] Last Admin: 08/21/17 09:22 Dose: 40 mg Warfarin Sodium (Coumadin) 3 mg PO 1800 [facility] Stop: 08/21/17 18:01 - Labs Labs: 08/21/17 07:38 08/21/17 07:38 PT 29.8 SECONDS (9.7-12.2) H* D 08/21/17 07:38 INR 2.7 D 08/21/17 07:38 APTT 34 SECONDS (21-34) 08/16/17 07:23
[2017-08-21] MEDS: Digoxin 125 mcg (0.125 mg) Tab PO SCH (17:01)
[2017-08-21 17:02] VITALS: PULSE 60
[2017-08-22 00:59] VITALS: O2SAT 97
[2017-08-22 07:33] VITALS: TEMP 97.7
[2017-08-22 07:52] LABS: MONO # 0.2 K/uL (0.0-0.8)
[2017-08-22 08:02] LABS: INR 1.9; PROTHROMBIN TIME 20.6 SECONDS (9.7-12.2)
[2017-08-22 08:08] LABS: ALB/GLOB RATIO 1.2 (1.0-2.1); ALBUMIN 3.5 g/dL (3.5-5.0); ALT/SGPT 32 U/L (9-52); AST/SGOT 58 U/L (14-36); BLOOD UREA NITROGEN 34 mg/dL (7-17); GFR AFRICAN-AMERICAN > 60; GFR NON-AFRICAN AMERICAN > 60
[2017-08-22 08:11] LABS: LYMPH # 0.4 K/uL (1.0-4.3); MEAN CELL VOLUME 89.5 fL (81.0-99.0); NEUT # 3.7 K/uL (1.8-7.0); NRBC % 0.1 % (0.0-2.0)
[2017-08-22 08:42] LABS: BASO % 0.6 % (0.0-2.0); EOS % 0.1 % (0.0-4.0); HEMOGLOBIN 9.5 g/dL (11.0-16.0); MEAN CORPUSCULAR HEMOGLOBIN 30.6 pg (27.0-31.0); MEAN CORPUSCULAR HGB CONC 34.2 g/dL (33.0-37.0); MEAN PLATELET VOLUME 12.2 fL (7.2-11.7); MONO % 5.2 % (0.0-10.0); NEUT % 84.1 % (50.0-75.0); RBC 3.11 Mil/uL (3.80-5.20); WHITE BLOOD COUNT 4.3 K/uL (4.8-10.8)
[2017-08-22 09:02] VITALS: BP 146/58; PULSE 61
[2017-08-22] MEDS: Pantoprazole 40 mg EC Tab PO SCH (09:03)
[2017-08-22] MEDS: MethylPREDNISolone 40 mg Vial IVPB SCH (09:03)
[2017-08-22] MEDS: Mupirocin 2% Ointment (NASAL) NAS SCH (09:04)
[2017-08-22] MEDS ORDERED: ERGOCALCIFEROL PO SCH (10:00)
[2017-08-22] MEDS ORDERED: RISEDRONATE SODIUM 35 MG PO SCH (10:00)
--- NOTE | 2017-08-22 13:40 | CP.PCM.PN ---
Subjective - Date & Time of Evaluation Date of Evaluation: 08/22/17 Time of Evaluation: 13:35 - Subjective Subjective: PATIENT ADMITTED FOR SYMPTOMATIC ANEMIA AAOX3/ SITTING AT THE BEDSIDE DENIES CHEST PAIN / SOB / DIZZINESS / NAUSEA OR VOMITING NO SIGN OF DISTRESS NOTED Objective - Vital Signs/Intake and Output Vital Signs (last 24 hours): Temp Pulse Resp BP Pulse Ox 97.7 F 61 20 146/58 L 97 08/22/17 07:00 08/22/17 09:01 08/22/17 07:00 08/22/17 09:01 08/22/17 07:00 - Medications Medications: Current Medications Acetaminophen (Tylenol 325mg Tab) 650 mg PO Q6 PRN PRN Reason: Headache Last Admin: 08/16/17 17:23 Dose: 650 mg Digoxin (Digoxin) 0.125 mg PO DAILY@1800 [facility] Last Admin: 08/21/17 17:01 Dose: 0.125 mg Ergocalciferol (Drisdol 50,000 Intl Units Cap) 1 cap PO QWK [facility] Folic Acid (Folic Acid) 1 mg PO DAILY [facility] Last Admin: 08/22/17 09:03 Dose: 1 mg Doxycycline Hyclate 100 mg/ (Sodium Chloride) 100 mls @ 100 mls/hr IVPB Q12H [facility] PRN Reason: Protocol Last Admin: 08/22/17 09:52 Dose: 100 mls/hr Methylprednisolone (Solu-Medrol) 40 mg IVPB Q12 [facility] Last Admin: 08/22/17 09:03 Dose: 40 mg Metoprolol Tartrate (Lopressor) 50 mg PO BID [facility] Last Admin: 08/22/17 09:03 Dose: 50 mg Montelukast Sodium (Singulair) 10 mg PO HS [facility] Last Admin: 08/21/17 21:31 Dose: 10 mg Mupirocin (Bactroban 2% Nasal) 0.25 gm ESAU BID [facility] Stop: 08/23/17 18:01 Last Admin: 08/22/17 09:04 Dose: 0.25 gm Pantoprazole Sodium (Protonix Ec Tab) 40 mg PO DAILY [facility] Last Admin: 08/22/17 09:03 Dose: 40 mg - Labs Labs: 08/22/17 07:00 08/22/17 07:00 PT 20.6 SECONDS (9.7-12.2) H D 08/22/17 07:00 INR 1.9 D 08/22/17 07:00 APTT 34 SECONDS (21-34) 08/16/17 07:23 Assessment and Plan - Assessment and Plan (Free Text) Assessment: PATIENT SEEN AND EXAMINED AT THE BEDSIDE LUNG SOUND CLEAR FRANCISCO HEMOGLOBIN IS STABEL NO SIGN OF BLEEDING INR IS 1.9 PATIENT WILL RESUME HOME COUMADIN ECHO RESULT IS PENDING / F/U AT THE DR ESPINAL OFFICE DISCUSS WITH DR ESPINAL WHO AGREE FOR DC FOLLOW UP WITH DR ESPINAL IN HIS OFFICE 1-2 WEEK ---CALL FOR APPOINTMENT ECHO RESULT CAN BE OBTAIN AT YOUR VISIT FOLLOW UP WITH WITH ONCOLOGIST AND LIGHT RAIL OPERATOR IN 1-2 WEEK REEVALUATE YOUR AORTIC PROSTHETIC VALVE CONTINUE ALL YOUR HOME MEDICATION ORDER FOLIC ACID 1 MG PO DAILY 2 EXTRA DAYS PO DOXY WAS OBTAINED IN HOUSE ACTIVITY TOLERATED CALL DR ESPINAL OR GO TO THE EMERGENCY ROOM IF SYMPTOMS RETURN OR WORSENING DISCUSS WITH PATIENT WHO AGREE AND VERBALIZED UNDERSTANDING
[2017-08-23] MEDS ORDERED: RISEDRONATE SODIUM 35 MG PO SCH (10:00)
[2017-08-23] MEDS ORDERED: Ergocalciferol 50,000 Intl Units Cap PO SCH (10:00)
--- NOTE | 2017-08-23 14:20 | CP.PCM.DIS ---
Provider - Provider Date of Admission: 08/17/17 18:45 Attending physician: Luci Ornelas MD Time Spent in preparation of Discharge (in minutes): 45 Hospital Course - Lab Results Lab Results: Micro Results 08/16/17 17:00 Blood-Venous Blood Culture - Final NO GROWTH AFTER 5 DAYS 08/16/17 17:30 Blood-Venous Blood Culture - Final NO GROWTH AFTER 5 DAYS 08/16/17 17:30 Blood-Venous Gram Stain - Final TEST NOT PERFORMED 08/16/17 Unknown Urine,Clean Catch Urine Culture - Final <10,000 CFU/ML. MULTIPLE SPECIES. PROBABLE CONTAMINATION. 08/16/17 06:47 Naris MRSA Culture (Admit) - Final MRSA DETECTED Most Recent Lab Values WBC 4.3 K/uL (4.8-10.8) L 08/22/17 07:00 RBC 3.11 Mil/uL (3.80-5.20) L 08/22/17 07:00 Hgb 9.5 g/dL (11.0-16.0) L 08/22/17 07:00 Hct 27.9 % (34.0-47.0) L 08/22/17 07:00 MCV 89.5 fL (81.0-99.0) 08/22/17 07:00 MCH 30.6 pg (27.0-31.0) 08/22/17 07:00 MCHC 34.2 g/dL (33.0-37.0) 08/22/17 07:00 RDW 16.0 % (11.5-14.5) H 08/22/17 07:00 Plt Count 103 K/uL (130-400) L 08/22/17 07:00 MPV 12.2 fL (7.2-11.7) H 08/22/17 07:00 Neut % (Auto) 84.1 % (50.0-75.0) H 08/22/17 07:00 Lymph % (Auto) 10.0 % (20.0-40.0) L 08/22/17 07:00 Charlton % (Auto) 5.2 % (0.0-10.0) 08/22/17 07:00 Eos % (Auto) 0.1 % (0.0-4.0) 08/22/17 07:00 Baso % (Auto) 0.6 % (0.0-2.0) 08/22/17 07:00 Neut # (Auto) 3.7 K/uL (1.8-7.0) 08/22/17 07:00 Lymph # (Auto) 0.4 K/uL (1.0-4.3) L 08/22/17 07:00 Charlton # (Auto) 0.2 K/uL (0.0-0.8) 08/22/17 07:00 Eos # (Auto) 0.0 K/uL (0.0-0.7) 08/22/17 07:00 Baso # (Auto) 0.0 K/uL (0.0-0.2) 08/22/17 07:00 Neutrophils % (Manual) 87 % (50-75) H 08/19/17 07:16 Band Neutrophils % 1 % (0-2) 08/19/17 07:16 Lymphocytes % (Manual) 9 % (20-40) L 08/19/17 07:16 Monocytes % (Manual) 3 % (0-10) 08/19/17 07:16 Differential Comment 08/22/17 07:00 Toxic Granulation Present 08/18/17 06:45 Platelet Estimate Slightly decreased (NORMAL) L 08/19/17 07:16 Large Platelets Present 08/18/17 06:45 Polychromasia Slight 08/18/17 06:45 Hypochromasia (manual) Slight 08/18/17 06:45 Anisocytosis (manual) Slight 08/19/17 07:16 Microcytosis (manual) Slight 08/17/17 07:46 ESR 35 mm/hr (0-20) H 08/17/17 07:46 Retic Count 4.5 % (0.5-1.5) H 08/17/17 07:46 Haptoglobin < 20.0 mg/dL (30.0-200.0) L 08/17/17 17:09 PT 20.6 SECONDS (9.7-12.2) H D 08/22/17 07:00 INR 1.9 D 08/22/17 07:00 APTT 34 SECONDS (21-34) 08/16/17 07:23 Sodium 138 mmol/L (132-148) 08/22/17 07:00 Potassium 5.0 mmol/L (3.6-5.2) 08/22/17 07:00 Chloride 106 mmol/L (98-107) 08/22/17 07:00 Carbon Dioxide 23 mmol/L (22-30) 08/22/17 07:00 Anion Gap 14 (10-20) 08/22/17 07:00 BUN 34 mg/dL (7-17) H 08/22/17 07:00 Creatinine 0.8 mg/dL (0.7-1.2) 08/22/17 07:00 Est GFR ( Amer) > 60 08/22/17 07:00 Est GFR (Non-Af Amer) > 60 08/22/17 07:00 Random Glucose 161 mg/dL (65-105) H 08/22/17 07:00 Calcium 9.0 mg/dl (8.6-10.4) 08/22/17 07:00 Ferritin 89.6 ng/mL 08/17/17 17:09 Total Bilirubin 1.2 mg/dL (0.2-1.3) 08/22/17 07:00 Direct Bilirubin 0.5 mg/dL (0.0-0.4) H 08/17/17 07:46 AST 58 U/L (14-36) H 08/22/17 07:00 ALT 32 U/L (9-52) 08/22/17 07:00 Alkaline Phosphatase 60 U/L (38-126) 08/22/17 07:00 Lactate Dehydrogenase 3892 U/L (313-618) H 08/17/17 17:09 C-Reactive Protein 52.40 mg/L (0.0-9.9) H 08/17/17 07:46 Total Protein 6.4 g/dL (6.3-8.3) 08/22/17 07:00 Albumin 3.5 g/dL (3.5-5.0) 08/22/17 07:00 Globulin 2.9 gm/dL (2.2-3.9) 08/22/17 07:00 Albumin/Globulin Ratio 1.2 (1.0-2.1) 08/22/17 07:00 Vitamin B12 620 pg/mL (239-931) 08/17/17 17:09 Folate 17.9 ng/mL 08/17/17 17:09 Urine Color Yellow (YELLOW) 08/15/17 16:51 Urine Clarity Hazy (Clear) 08/15/17 16:51 Urine pH 5.0 (5.0-8.0) 08/15/17 16:51 Ur Specific Maysel 1.017 (1.003-1.030) 08/15/17 16:51 Urine Protein Negative mg/dL (NEGATIVE) 08/15/17 16:51 Urine Glucose (UA) Normal mg/dL (Normal) 08/15/17 16:51 Urine Ketones Negative mg/dL (NEGATIVE) 08/15/17 16:51 Urine Blood 2+ (NEGATIVE) H 08/15/17 16:51 Urine Nitrate Negative (NEGATIVE) 08/15/17 16:51 Urine Bilirubin Negative (NEGATIVE) 08/15/17 16:51 Urine Urobilinogen 2.0 mg/dL (0.2-1.0) H 08/15/17 16:51 Ur Leukocyte Esterase Neg Amanda/uL (Negative) 08/15/17 16:51 Urine WBC (Auto) 4 /hpf (0-5) 08/15/17 16:51 Urine RBC (Auto) 21 /hpf (0-3) H 08/15/17 16:51 Ur Squamous Epith Cells 1 /hpf (0-5) 08/15/17 16:51 Amorphous Sediment Rare /ul (<OCC) H 08/15/17 16:51 Hyaline Casts 3-5 /lpf (0-2) H 08/15/17 16:51 Stool Occult Blood Negative (NEGATIVE) 08/18/17 08:14 Digoxin 1.1 ng/mL (0.8-2.0) 08/15/17 17:53 Hepatitis A IgM Ab Negative (NEGATIVE) 08/17/17 07:46 Hep Bs Antigen Negative (NEGATIVE) 08/17/17 07:46 Hep B Core IgM Ab Negative (NEGATIVE) 08/17/17 07:46 Hepatitis C Antibody Negative (NEGATIVE) 08/17/17 07:46 Influenza Typ A,B (EIA) Negative for flu a/b (NEGATIVE) 08/17/17 07:46 Mycoplasma pneumon IgM Negative (NEGATIVE) 08/17/17 07:46 Blood Type O POSITIVE 08/20/17 09:10 Antibody Screen Negative 08/20/17 09:10 TIA, Poly Interpret Negative (NEGATIVE) 08/18/17 06:45 - Hospital Course Hospital Course: Patient is admitted from the emergency room with symptomatic anemia. 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 Currently patient is complaining of severe fatigue tiredness. Patient had a hemoglobin of 8.2 mg/dL. PAST HIST. Patient has history of aortic and mitral valve replacement. Hypertension patient was given 1 unit of packed cells. She has hemoglobin stabilized between 9 and 10 mg/dL Patient had no further symptoms. There was no CHF. Patient had UTI and patient responded with IV antibiotics. 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 Patient is stable will continue by mouth antibiotics and will follow with her primary doctor and her food services coordinator. patient had 1 more unit of packed cells before discharge and the hemoglobin was 9.5. Patient also had an echocardiogram done the report is still pending the day of discharge. Discharge Exam - Head Exam Head Exam: ATRAUMATIC Discharge Plan - Discharge Medications Prescriptions: Folic Acid 1 mg PO DAILY 30 Days tab - Follow Up Plan Condition: FAIR Disposition: HOME/ ROUTINE Instructions: Asthma, Adult (DC), Low Salt Diet, Fever, Adult (DC), Prosthetic Heart Valve (DC), Folic Acid, Warfarin, Normocytic Normochromic Anemia (DC), Hypertension (DC) Additional Instructions: FOLLOW UP WITH DR ORNELAS IN HIS OFFICE 1-2 WEEK ---CALL FOR APPOINTMENT ECHO RESULT CAN BE OBTAIN AT YOUR VISIT FOLLOW UP WITH WITH ONCOLOGIST AND HIGH SCHOOL SCIENCE TUTOR IN 1-2 WEEK REEVALUATE YOUR AORTIC PROSTHETIC VALVE CONTINUE ALL YOUR HOME MEDICATION ORDER FOLIC ACID 1 MG PO DAILY 2 EXTRA DAYS PO DOXY WAS OBTAINED IN HOUSE ACTIVITY TOLERATED CALL DR ORNELAS OR GO TO THE EMERGENCY ROOM IF SYMPTOMS RETURN OR WORSENINDY Referrals: Jj Copeland MD [Staff Provider] - Eris Martinez MD [Staff Provider] - Luci Ornelas MD [Staff Provider] -
== END 2017-08-22 15:01 | disposition home or self-care (01) | DRG 812 ==
LOC: C.ER 14:43 → C.9E 18:45 → C.3T 21:51 → OBSVTOIN 08-17 18:45 → C.5S 08-19 11:48
PROVIDERS: ADMIT Internal Medicine Cardiovascular Disease; ATTEND Internal Medicine Cardiovascular Disease
DX: D58.9 Hereditary hemolytic anemia, unspecified (principal); D68.9 Coagulation defect, unspecified; N39.0 Urinary tract infection, site not specified; I10 Essential (primary) hypertension; Z79.01 Long term (current) use of anticoagulants; J45.909 Unspecified asthma, uncomplicated; Z88.0 Allergy status to penicillin; Z95.2 Presence of prosthetic heart valve; D69.6 Thrombocytopenia, unspecified

== ENCOUNTER 2017-09-16 15:03 | Inpatient (IN) | payer BC, MEDICARE ==
[2017-09-16 15:03] VITALS: BMI 26.2
[2017-09-16] MEDS ORDERED: Metoprolol 1 mg/ml Inj IVP ONE (16:04)
[2017-09-16 16:26] LABS: BASO % 0.6 % (0.0-2.0); EOS # 0.1 K/uL (0.0-0.7); EOS % 1.7 % (0.0-4.0); HEMOGLOBIN 9.2 g/dL (11.0-16.0); LYMPH # 0.9 K/uL (1.0-4.3); LYMPH % 21.8 % (20.0-40.0); MEAN CORPUSCULAR HEMOGLOBIN 30.3 pg (27.0-31.0); MEAN CORPUSCULAR HGB CONC 33.3 g/dL (33.0-37.0); MEAN PLATELET VOLUME 10.9 fL (7.2-11.7); MONO # 0.5 K/uL (0.0-0.8); MONO % 11.8 % (0.0-10.0); NEUT # 2.6 K/uL (1.8-7.0); NEUT % 64.1 % (50.0-75.0); NRBC % 0.1 % (0.0-2.0); RBC 3.03 Mil/uL (3.80-5.20); RED CELL DISTRIBUTION WIDTH 16.6 % (11.5-14.5)
[2017-09-16 16:41] LABS: INR 2.7; PROTHROMBIN TIME 29.1 SECONDS (9.7-12.2)
[2017-09-16 16:49] LABS: ALB/GLOB RATIO 1.4 (1.0-2.1); ALBUMIN 4.3 g/dL (3.5-5.0); ALT/SGPT 34 U/L (9-52); AST/SGOT 58 U/L (14-36); BLOOD UREA NITROGEN 17 mg/dL (7-17); CALCIUM 9.5 mg/dl (8.6-10.4); GFR AFRICAN-AMERICAN > 60; GFR NON-AFRICAN AMERICAN > 60
[2017-09-16 16:52] LABS: B-TYPE NATRIURETIC PEPTIDE 2350 pg/mL (0-900)
[2017-09-16] MEDS ORDERED: Digoxin 500 mcg/2ml (0.5 mg/2ml) Inj IVP STA (16:52)
[2017-09-16] MEDS ORDERED: Digoxin 125 mcg (0.125 mg) Tab ONE (16:57)
--- NOTE | 2017-09-16 16:57 | RAD ---
Date of service: 09/16/2017 PROCEDURE: CHEST RADIOGRAPH, 1 VIEW HISTORY: Rapid Afib COMPARISON: Chest radiograph dated 08/16/2017. FINDINGS: LUNGS: Rinse of the pulmonary vasculature may be secondary to AP technique and/or pulmonary vascular congestion. No focal consolidation. PLEURA: No pneumothorax or pleural fluid seen. CARDIOVASCULAR: Prior sternotomy with sternal wires, surgical clips and prosthetic cardiac valve redemonstrated. Atherosclerotic aortic calcifications. Cardiomediastinal silhouette stably enlarged OSSEOUS STRUCTURES: Unchanged. VISUALIZED UPPER ABDOMEN: Normal. OTHER FINDINGS: None. IMPRESSION: Prominence of pulmonary vasculature may be secondary to AP technique and/or pulmonary vascular congestion. No focal consolidation or pleural effusion.
--- NOTE | 2017-09-16 17:28 | C.PDOC ---
Time Seen by Provider: 09/16/17 15:56 Chief Complaint (Nursing): Palpitations History Per: Patient Onset/Duration Of Symptoms: Days (about 2 weeks), Intermittent Episodes Current Symptoms Are (Timing): Still Present Quality Of Symptoms: Rapid Heart Rate Severity: Moderate Exacerbating Factor(s): Pos: None Additional History Per: Prior Records Past Medical History Reviewed: Historical Data, Nursing Documentation, Vital Signs Vital Signs: Last Vital Signs Temp 98.4 F 09/16/17 15:56 Pulse 135 H 09/16/17 15:56 Resp 20 09/16/17 15:56 BP 116/80 09/16/17 15:56 Pulse Ox 98 09/16/17 15:56 - Medical History PMH: Anemia (during ), Arthritis, CHF, Gastritis, HTN, Mitral Valve Prolapse ((1990)& arotic (2001) valve prolapse, mechanical heart valves placed) Other Surgeries: Mitral and Aortic valves replacement - [facility] Procedures D & C NEC (08/31/13) HYSTEROSCOPY (08/31/13) Family History: States: Unknown Family Hx - Social History Hx Tobacco Use: No Hx Alcohol Use: No Hx Substance Use: No - Immunization History Hx Tetanus Toxoid Vaccination: No Hx Influenza Vaccination: Yes Hx Pneumococcal Vaccination: Yes Review Of Systems Except As Marked, All Systems Reviewed And Found Negative. Constitutional: Negative for: Fever Cardiovascular: Positive for: Palpitations. Negative for: Chest Pain, Light Headedness Respiratory: Negative for: Shortness of Breath, Hemoptysis Gastrointestinal: Negative for: Vomiting, Abdominal Pain, Melena, Hematochezia, Hematemesis Musculoskeletal: Negative for: Neck Pain, Back Pain, Leg Pain Neurological: Negative for: Weakness, Numbness Physical Exam - Physical Exam Appears: Non-toxic Skin: Normal Color, Warm, Dry Head: Atraumatic, Normacephalic Eye(s): bilateral: PERRL, EOMI Neck: Normal ROM, Supple Cardiovascular: Rhythm Irregular (tachycardia) Respiratory: Normal Breath Sounds, No Accessory Muscle Use Gastrointestinal/Abdominal: Soft, No Tenderness Extremity: Normal ROM, No Calf Tenderness Neurological/Psych: Oriented x3, Normal Cognition, Normal Motor, Normal Sensation ED Course And Treatment - Laboratory Results Result Diagrams: 09/16/17 16:23 09/16/17 16:23 ECG: Interpreted By Me, Viewed By Me ECG Rhythm: Atrial Fibrillation, Nonspecific Changes ECG Interpretation: Abnormal Interpretation Of ECG: AFib with RVR Rate From EC O2 Sat by Pulse Oximetry: 98 Pulse Ox Interpretation: Normal - Radiology CXR: Viewed By Me, Read By Radiologist CXR Interpretation: Yes: Other (Prominence of pulmonary vasculature may be secondary to AP technique and/or pulmonary vascular congestion. No focal consolidation or pleural effusion.) Progress - Interventions Interventions:: Observation - Medications Administered Intravenous: Other (Digoxin) - Data Reviewed Data Reviewed: Lab, Diagnostic imaging, EKG, Old records - Patient Status Patient status: Partially improved - Continuity of Care Discussed patient case with:: Patient, ED Nurse, Covering for PMD - Patient Plan Patient Plan: Admission, Telemetry Disposition Discussed With Dr.: Luci Ornelas Comment: He accepted pt on his service. He wants pt to receive Cardizem 30mg PO. Doctor Will See Patient In The: Hospital Counseled Patient/Family Regarding: Studies Performed, Diagnosis - Disposition Disposition: HOSPITALIZED Disposition Time: 17:34 Condition: SERIOUS - Clinical Impression Clinical Impression: New onset atrial fibrillation, Atrial fibrillation with rapid ventricular response
[2017-09-17] MEDS: Pantoprazole 20 mg EC Tab PO SCH (09:04)
[2017-09-17 09:59] LABS: CK-MB 0.31 ng/mL (0.0-3.38); TROPONIN I 0.013 ng/mL (0.00-0.120)
[2017-09-17] MEDS ORDERED: FERROUS GLUCONATE PO SCH (10:00)
--- NOTE | 2017-09-17 14:05 | CP.PCM.HP ---
History of Present Illness - History of Present Illness History of Present Illness: COMPREHENSIVE HISTORY & PHYSICAL EXAM HPI Patient admitted from the emergency room complaining of palpitation. In the emergency room patient had an atrial fibrillation with rapid ventricular rate. This is a new onset of atrial fibrillation. Patient was treated with by mouth digoxin and Cardizem and the heart rate is still over 100. Patient is admitted to telemetry for further treatment PAST HIST. 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 Patient was advised to follow with her wildlife policy professional for evaluation aortic valve prosthesis for replacement. Prior to discharge patient had an echo which showed left atrial enlargement moderate to severe pulmonary hypertension mitral valve prosthesis appears to be functioning normal and aortic valve prosthesis was not well visualized patient was advised to undergo a LORIN but declined it and wanted to follow with her wildlife policy professional. Patient has not had atrial fibrillation in the past. Patient currently is taking digoxin for the artificial valve. PERSONAL HIST: Smoking. N Alcohol. N Allergy N Travel_- . FAMILY HIST : ROS : Constitutional: Negative for weight change, chills, night sweats, fatigue and usage of assist device. Eyes: Negative for redness, swelling, itching, discharge, vision changes, blurry vision, double vision, glaucoma, cataracts, Ears: Negative for hearing loss, ringing, , tinnitus, vertigo Nose: Negative for rhinorrhea, stuffiness, sniffing, itching, postnasal drip, discoloration, nasal congestion and epistaxis. Throat: Negative for throat clearing, sore throat, hoarseness, difficulty swallowing and difficulty speaking. Respiratory: Negative for cough, , sputum production, chest tightness, wheezing, pleuritic chest pain ,daytime somnolence, chronic cough, hemoptysis, snoring at night, Cardiovascular: Negative for chest pain, , orthopnea, PND, Edema of legs, leg cramps, angina, claudication, , irregular heartbeat, Neurology: Negative for irritability, muscle weakness, numbness and tingling, seizures, tremors, migraines, slurred speech, syncope, memory loss, mood changes , recurrent headaches Gastrointestinal: Negative for difficulty swallowing, diarrhea, constipation, black stools, rectal bleeding, nausea, flatulence, reflux, poor appetite, changes in bowel habits, abdominal pain Genitourinary: Negative for frequent urination, hematuria, discharge, incontinence, urinary retention, frequent UTI, Psychiatric: Negative for depression, anxiety/panic, suicidal tendencies, Musculoskeletal: Negative for swollen joints, back pain, , neck pain, morning stiffness of joints, . Skin: Negative for rash, ulcers, itching, dry skin and pigmented lesions. P/E: Constitutional: Appears stated age and in no apparent distress. Head: Normocephalic. Ears: External ear canals patent without inflammation. Tympanic membranes intact with normal light reflex and landmark. Eyes: Pupils are central, bilaterally equal, symmetrical and reacts to light with normal movements and no icterus or pallor. Nose: External nares are patent. Mucosa is pink Mouth-Throat: Good general appearance and condition. No post-pharyngeal/oropharyngeal erythema and tonsillar hypertrophy. Good dental hygiene. Neck-Lymphatic: Neck is supple with normal ROM, no thyromegaly, lymph nodes or masses. JVD is normal with no carotid bruit. Lungs: Clear to percussion and auscultation with bilateral normal air entry. Cardiovascular metallic sounds with ejection systolic murmur in the aortic area and mid diastolic murmur in the mitral area. GI Exam: No hepatomegaly. Abdomen is soft and non-tender. No Organomegaly , masses or hernias are evident and bowel sounds are normal and active. Neurology: Higher function and all cranial nerves intact, with no gross motor or sensory deficit. Superficial and deep reflexes are normal with downwards planters. No cerebellar deficit with normal gait. Musculoskeletal: No tender spots with normal curvature of the spine with no swelling or restricted ROM of the small and large joints. Extremities: Homans sign absent. Intact pulses with no pitting edema, calf tenderness or skin color changes. Skin: No rash, eruptions or abnormal skin pigmentation LAB/RADIOLOGY: ASSESMENT : New onset of atrial fibrillation Mitral and aortic valve prosthesis. 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 PLAN: See orders Present on Admission - Present on Admission Any Indicators Present on Admission: No Past Patient History - Past Medical History & Family History Past Medical History?: Yes - Past Social History Smoking Status: Never Smoked - CARDIAC Hx Congestive Heart Failure: Yes Hx Hypertension: Yes Hx Mitral Valve Prolapse: Yes ((1990)& arotic (2001) valve prolapse, mechanical heart valves placed) - PULMONARY Hx Respiratory Disorders: No - NEUROLOGICAL Hx Neurological Disorder: No - HEENT Hx HEENT Problems: No - RENAL Hx Chronic Kidney Disease: No - ENDOCRINE/METABOLIC Hx Endocrine Disorders: No - HEMATOLOGICAL/ONCOLOGICAL Hx Anemia: Yes (during ) - INTEGUMENTARY Hx Dermatological Problems: No - MUSCULOSKELETAL/RHEUMATOLOGICAL Hx Arthritis: Yes Hx Falls: No - GASTROINTESTINAL Hx Gastritis: Yes - GENITOURINARY/GYNECOLOGICAL Hx Postmenopausal Bleeding: Yes - PSYCHIATRIC Hx Substance Use: No - SURGICAL HISTORY Hx Surgeries: Yes Hx Hysterectomy: Yes (1977) Hx Valve Replacement: Yes (arotic (2001) & mitral (1990) mechanical valves( [facility]) - ANESTHESIA Hx Anesthesia: Yes Hx Anesthesia Reactions: No Hx Malignant Hyperthermia: No Meds Allergies/Adverse Reactions: Allergies Allergy/AdvReac Type Severity Reaction Status Date / Time Penicillins Allergy RASH Verified 08/15/17 15:12 Results - Vital Signs Recent Vital Signs: Last Vital Signs Temp 97.9 F 09/17/17 07:00 Pulse 64 09/17/17 12:05 Resp 20 09/17/17 07:00 BP 112/64 09/17/17 07:00 Pulse Ox 98 09/17/17 07:00 - Labs Result Diagrams: 09/16/17 16:23 09/16/17 16:23 Labs: Laboratory Results - last 24 hr 09/16/17 09/16/17 09/16/17 16:23 16:23 16:23 WBC 4.0 L RBC 3.03 L Hgb 9.2 L Hct 27.5 L MCV 91.0 MCH 30.3 MCHC 33.3 RDW 16.6 H Plt Count 134 MPV 10.9 Neut % (Auto) 64.1 Lymph % (Auto) 21.8 Thomas % (Auto) 11.8 H Eos % (Auto) 1.7 Baso % (Auto) 0.6 Neut # (Auto) 2.6 Lymph # (Auto) 0.9 L Thomas # (Auto) 0.5 Eos # (Auto) 0.1 Baso # (Auto) 0.0 PT INR APTT Sodium 142 Potassium 5.0 Chloride 108 H Carbon Dioxide 24 Anion Gap 15 BUN 17 Creatinine 0.9 Est GFR ( Amer) > 60 Est GFR (Non-Af Amer) > 60 Random Glucose 98 Calcium 9.5 Magnesium 1.8 Total Bilirubin 1.3 AST 58 H ALT 34 Alkaline Phosphatase 85 Total Creatine Kinase CK-MB (Mass) Troponin I < 0.0120 NT-Pro-B Natriuret Pep 2350 H Total Protein 7.3 Albumin 4.3 Globulin 3.0 Albumin/Globulin Ratio 1.4 Digoxin 0.5 L 09/16/17 09/17/17 09/17/17 16:23 00:50 09:27 WBC RBC Hgb Hct MCV MCH MCHC RDW Plt Count MPV Neut % (Auto) Lymph % (Auto) Thomas % (Auto) Eos % (Auto) Baso % (Auto) Neut # (Auto) Lymph # (Auto) Thomas # (Auto) Eos # (Auto) Baso # (Auto) PT 29.1 H INR 2.7 APTT 40 H Sodium Potassium Chloride Carbon Dioxide Anion Gap BUN Creatinine Est GFR ( Amer) Est GFR (Non-Af Amer) Random Glucose Calcium Magnesium Total Bilirubin AST ALT Alkaline Phosphatase Total Creatine Kinase 26 L 29 L CK-MB (Mass) 0.30 0.31 Troponin I < 0.0120 0.0130 NT-Pro-B Natriuret Pep Total Protein Albumin Globulin Albumin/Globulin Ratio Digoxin
--- NOTE | 2017-09-17 14:23 | CARD ---
APPROVED REPORT Date of service: 09/16/2017 EKG Measurement Heart [id number] <Conclusion> Atrial fibrillation with rapid ventricular response Left posterior fascicular block ST & T wave abnormality, consider inferior ischemia Abnormal ECG
[2017-09-17 17:17] LABS: INR 2.5; PROTHROMBIN TIME 27.6 SECONDS (9.7-12.2)
[2017-09-17 17:58] VITALS: PULSE 80
[2017-09-17] MEDS ORDERED: Digoxin 250 mcg (0.25 mg) Tab PO SCH (18:00)
[2017-09-18 00:23] VITALS: RESP 20
[2017-09-18 08:04] LABS: INR 2.6; PROTHROMBIN TIME 28.6 SECONDS (9.7-12.2)
[2017-09-18] MEDS: Pantoprazole 20 mg EC Tab PO SCH (10:38)
--- NOTE | 2017-09-18 13:55 | CP.PCM.PN ---
Subjective - Date & Time of Evaluation Date of Evaluation: 09/18/17 Time of Evaluation: 13:53 - Subjective Subjective: CHIEF COMPLAINTS TODAY : Patient has no further palpitation or chest pain or shortness of breath ROS. HEENT : N. Resp : No cough, wheezing ,pleuritic CP ,or hemoptysis Cardio : No anginal CP, PND, orthopnea, palpitation GI : No abd.pain, n/v ,diarrhea or GI bleeding . 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 Musculoskel : No joint swelling , Derm : No rash Psych : Normal affect. Ext : No swelling ,calf pain PE. Pt. is alert awake in no distress. V.S As noted in the chart Head ,ear nose,throat and eyes : Normal. Neck : Supple with normal carotids. Lungs: Clear air entry. Heart : S1 & S2 normal with S4. No murmur. Abd : Soft non tender with normal bowel sounds. Neuro : Moves all ext. with no localized deficit. Ext : No edema with intact pulses.Non tender calves Derm : No rashes or decubitus ulcer. LABS/RADIOLOGY: ASSESSMENT/PLAN : Current medication is controlling the heart rate between 60 and 70. Continue Coumadin observe for another 24 hours Objective - Vital Signs/Intake and Output Vital Signs (last 24 hours): Temp Pulse Resp BP Pulse Ox 97.8 F 78 20 134/54 L 94 L 09/18/17 07:00 09/18/17 13:36 09/18/17 07:00 09/18/17 13:36 09/18/17 07:00 - Medications Medications: Current Medications Digoxin (Lanoxin) 0.25 mg PO DAILY@1800 [facility] Last Admin: 09/17/17 17:58 Dose: 0.25 mg Diltiazem HCl (Cardizem) 30 mg PO Q8 [facility] Last Admin: 09/18/17 13:42 Dose: 30 mg Ferrous Gluconate (Fergon) 324 mg PO DAILY [facility] Last Admin: 09/18/17 10:38 Dose: 324 mg Folic Acid (Folic Acid) 1 mg PO DAILY [facility] Last Admin: 09/18/17 10:38 Dose: 1 mg Pantoprazole Sodium (Protonix Ec Tab) 20 mg PO DAILY [facility] Last Admin: 09/18/17 10:38 Dose: 20 mg Propranolol HCl (Inderal) 20 mg PO TID [facility] Last Admin: 09/17/17 17:58 Dose: 20 mg - Labs Labs: 09/16/17 16:23 09/16/17 16:23 PT 28.6 SECONDS (9.7-12.2) H 09/18/17 07:48 INR 2.6 09/18/17 07:48 APTT 38 SECONDS (21-34) H 09/18/17 07:48
[2017-09-19] MEDS: Pantoprazole 20 mg EC Tab PO SCH (09:14)
--- NOTE | 2017-09-19 14:25 | CP.PCM.PN ---
Subjective - Date & Time of Evaluation Date of Evaluation: 09/19/17 Time of Evaluation: 14:24 - Subjective Subjective: currently patient has no palpitation. Heart rate is in the normal range. Blood pressure in the low side of the normal The rhythm is ectopic no definite P waves are seen could be junctional. Digoxin discontinued. We will observe this rhythm for another 24 hours and plan further. Objective - Vital Signs/Intake and Output Vital Signs (last 24 hours): Temp Pulse Resp BP Pulse Ox 97.9 F 68 20 101/56 L 95 09/19/17 08:00 09/19/17 13:20 09/19/17 08:00 09/19/17 13:20 09/19/17 08:00 - Medications Medications: Current Medications Diltiazem HCl (Cardizem) 30 mg PO Q8 [facility] Last Admin: 09/19/17 05:30 Dose: 30 mg Ferrous Gluconate (Fergon) 324 mg PO DAILY [facility] Last Admin: 09/19/17 09:14 Dose: 324 mg Folic Acid (Folic Acid) 1 mg PO DAILY [facility] Last Admin: 09/19/17 09:14 Dose: 1 mg Pantoprazole Sodium (Protonix Ec Tab) 20 mg PO DAILY [facility] Last Admin: 09/19/17 09:14 Dose: 20 mg Propranolol HCl (Inderal) 20 mg PO TID [facility] Last Admin: 09/19/17 09:14 Dose: 20 mg - Labs Labs: 09/16/17 16:23 09/16/17 16:23 PT 28.6 SECONDS (9.7-12.2) H 09/18/17 07:48 INR 2.6 09/18/17 07:48 APTT 38 SECONDS (21-34) H 09/18/17 07:48
--- NOTE | 2017-09-19 21:31 | CARD ---
APPROVED REPORT Date of service: 09/17/2017 EKG Measurement Heart [id number] <Conclusion> Junctional rhythm Abnormal ECG
[2017-09-20 00:02] VITALS: O2SAT 98
[2017-09-20] MEDS: Pantoprazole 20 mg EC Tab PO SCH (09:00)
--- NOTE | 2017-09-20 13:52 | CP.PCM.PN ---
Subjective - Date & Time of Evaluation Date of Evaluation: 09/20/17 Time of Evaluation: 13:51 - Subjective Subjective: patient currently has periods of sinus bradycardia especially during sleeping hours with no symptoms. EKG shows similar sinus bradycardia with very small P waves. We will discharge the patient on Cardizem and low dose of Inderal 10 mg by mouth 3 times a day Objective - Vital Signs/Intake and Output Vital Signs (last 24 hours): Temp Pulse Resp BP Pulse Ox 97.9 F 79 20 124/66 98 09/20/17 07:39 09/20/17 13:43 09/20/17 07:39 09/20/17 13:43 09/20/17 07:39 Intake and Output: 09/20/17 09/20/17 11:59 23:59 Intake Total 200 Balance 200 - Medications Medications: Current Medications Diltiazem HCl (Cardizem) 30 mg PO Q8 [facility] Last Admin: 09/20/17 13:47 Dose: 30 mg Ferrous Gluconate (Fergon) 324 mg PO DAILY [facility] Last Admin: 09/20/17 09:00 Dose: 324 mg Folic Acid (Folic Acid) 1 mg PO DAILY [facility] Last Admin: 09/20/17 09:00 Dose: 1 mg Pantoprazole Sodium (Protonix Ec Tab) 20 mg PO DAILY [facility] Last Admin: 09/20/17 09:00 Dose: 20 mg Propranolol HCl (Inderal) 20 mg PO TID [facility] Last Admin: 09/20/17 13:47 Dose: 20 mg - Labs Labs: 09/16/17 16:23 09/16/17 16:23 PT 28.6 SECONDS (9.7-12.2) H 09/18/17 07:48 INR 2.6 09/18/17 07:48 APTT 38 SECONDS (21-34) H 09/18/17 07:48
--- NOTE | 2017-09-20 14:54 | CP.PCM.PN ---
Subjective - Date & Time of Evaluation Date of Evaluation: 09/20/17 Time of Evaluation: 14:53 - Subjective Subjective: PATIENT WAS ADMITTED NEW ONSET AFIB AAOX3 / DENIES CHEST PAIN OR SOB NO SIGN OF DISTRESS NOTED Objective - Vital Signs/Intake and Output Vital Signs (last 24 hours): Temp Pulse Resp BP Pulse Ox 97.9 F 79 20 124/66 98 09/20/17 07:39 09/20/17 13:43 09/20/17 07:39 09/20/17 13:43 09/20/17 07:39 Intake and Output: 09/20/17 09/20/17 06:59 18:59 Intake Total 200 300 Balance 200 300 - Medications Medications: Current Medications Diltiazem HCl (Cardizem) 30 mg PO Q8 [facility] Last Admin: 09/20/17 13:47 Dose: 30 mg Ferrous Gluconate (Fergon) 324 mg PO DAILY [facility] Last Admin: 09/20/17 09:00 Dose: 324 mg Folic Acid (Folic Acid) 1 mg PO DAILY [facility] Last Admin: 09/20/17 09:00 Dose: 1 mg Pantoprazole Sodium (Protonix Ec Tab) 20 mg PO DAILY [facility] Last Admin: 09/20/17 09:00 Dose: 20 mg Propranolol HCl (Inderal) 20 mg PO TID [facility] Last Admin: 09/20/17 13:47 Dose: 20 mg - Labs Labs: 09/16/17 16:23 09/16/17 16:23 PT 28.6 SECONDS (9.7-12.2) H 09/18/17 07:48 INR 2.6 09/18/17 07:48 APTT 38 SECONDS (21-34) H 09/18/17 07:48 Assessment and Plan - Assessment and Plan (Free Text) Assessment: PATIENT SEEN AND EXAMINED AT THE BEDSIDE LUNG SOUND CLEAR [place] ECG SHOW SB AND SMALL P WAVE DISCUSS WITH DR ESPINAL WHO CLEAR FOR DC FOLLOW UP WITH DR ESPINAL IN 1-2 WEEK AT HIS OFFICE ---CALL FOR APPOINTMENT CONTINUE HOME MEDICATION NEW PRESCRIPTION GIVEN CARDIZEM 30 MG BY MOUTH DAILY INDERAL 10 MG BY MOUTH THREE TIMES A DAY STOP TAKING METOPROLOL AND DIG ACTIVITY TOLERATED CALL DR ESPINAL OR GO TO THE EMERGENCY ROOM IF SYMPTOMS RETURN OR WORSENING DISCUSS WITH PATIENT WHO AGREE AND VERBALIZED UNDERSTANDING
[2017-09-20 16:14] VITALS: TEMP 98.1
[2017-09-20 17:28] VITALS: BP 124/68; PULSE 68
--- NOTE | 2017-09-20 20:59 | CARD ---
APPROVED REPORT Date of service: 09/19/2017 EKG Measurement Heart [id number] <Conclusion> Normal sinus (small p waves). Abnormal ECG
--- NOTE | 2017-09-21 14:52 | CARD ---
APPROVED REPORT Date of service: 09/20/2017 EKG Measurement Heart [id number] <Conclusion> Unusual P axis, possible ectopic atrial rhythm Abnormal ECG
== END 2017-09-20 17:51 | disposition home or self-care (01) | DRG 310 ==
LOC: C.ER 15:03 → C.9E 17:35 → C.5S 21:09
PROVIDERS: ADMIT Internal Medicine Cardiovascular Disease; ATTEND Internal Medicine Cardiovascular Disease
DX: I48.91 Unspecified atrial fibrillation (principal); I34.1 Nonrheumatic mitral (valve) prolapse; I27.20 Pulmonary hypertension, unspecified; I11.0 Hypertensive heart disease with heart failure; I50.9 Heart failure, unspecified; Z79.01 Long term (current) use of anticoagulants; Z95.2 Presence of prosthetic heart valve; I47.2 Ventricular tachycardia